=== PATIENT | female | born 1995 | race Caucasian/White ===

== ENCOUNTER 2018-08-04 12:22 | Emergency (ER) | payer BC, SELFPAY ==
[2018-08-04 12:21] VITALS: BP 108/63; PULSE 92; RESP 18; TEMP 37; O2SAT 98
--- NOTE | 2018-08-04 12:26 | W.ED.GENAD ---
Discharge Plan Disposition Patient Disposition: HOME Condition: Improving Discharge Details Chief Complaint: OD/Poison Clinical Impression: Opiate overdose Primary Care Provider: Sanam Zuniga ED Provider: Irving Chapa Home Meds and New Rx's Prescriptions: Continued fluoxetine 20 mg capsule 20 mg PO DAILY RF: 0 buprenorphine-naloxone [Suboxone] 12-3 mg film 1 film SL DAILY RF: 0 hydroxyzine pamoate 50 mg capsule 50 mg PO QHS PRNRF: 0 gabapentin 300 mg capsule 300 mg PO TID RF: 0 levonorgestrel-ethinyl estrad [Jolessa] 1 EACH tablets,dose pack,3 month 1 tab PO DAILY Qty: 1 RF: 4 Discharge Instructions Additional Instructions: Please continue your efforts to avoid illicit drug use. Return at any time for reevaluation. Should you have worsening headache, develop shortness of breath or cough return as we had discussed pursuing a CAT scan of your head and a chest x-ray which you declined. Continue your regular medications. Medical Decision Making 23-year-old female, with history of opiate use and abuse, currently taking Suboxone but used IV heroin this afternoon. She was standing and then fell down and believes she may have struck her head. EMS arrived, found her with sonorous respirations and an O2 sat in the 80s. She was given Narcan 2 mg x 2, had assisted [id number] for 4 breaths, then awoke to a normal sensorium. She arrives with unremarkable vital signs conversant, no acute distress. Differential diagnosis would include acute traumatic head injury in addition to opiate overdose. Patient had IV access established, referred for CT scan of the head and neck as well as chest Xray. The patient subsequently declined radiologic imaging. She was seen in the ED by addiction counselor. She requested discharge to home, was stable and improved, invited to return at any time. HPI General Mode of arrival: EMS. Date/Time Provider Initiated Documentation: 08/04/18 12:25. Limitations to Documentation: no limitations. Information obtained by: patient and EMS. History of Present Illness 23 year old F presents to the emergency department with the chief complaint of Overdose, given Narcan x2, improved. Now with headache, described as moderate, Quality is described as dull and constant, and is localized to the head. Patient reports no radiation. Patient started experiencing this minute(s) and it has been constant. No relieving factors improve symptom(s), No exacerbating factors reported . Patient notes no other symptoms.. Patient did receive the following treatments prior to arrival, other (Narcan 4 mg) Related Data Home Medications Medication Instructions Recorded Confirmed levonorgestrel-ethinyl estrad 1 tab PO DAILY #1 pack 08/11/17 [Jolessa] buprenorphine 12 mg-naloxone 3 mg 1 film SL DAILY 07/26/18 08/04/18 sublingual film fluoxetine 20 mg capsule 20 mg PO DAILY 07/26/18 08/04/18 gabapentin 300 mg capsule 300 mg PO TID 07/26/18 08/04/18 hydroxyzine pamoate 50 mg capsule 50 mg PO QHS PRN cap 07/26/18 07/26/18 Previous Rx's Medication Instructions Recorded levonorgestrel-ethinyl estrad 1 tab PO DAILY #1 pack 08/11/17 [Jolessa] Allergies Allergy/AdvReac Type Severity Reaction Status Date / Time No Known Allergies Allergy Unverified 08/04/18 12:26 General Stated Complaint: OD/Poison NICOLETTE: 2 Review of Systems Review of Systems No shortness of breath. Patient required [id number] orthotic assistant x4 breaths per EMS. Complains of headache. No numbness, tingling, weakness. She has otherwise been well. She does take Suboxone and has been using IV heroin. [facility] Surgical History parotid gland Family History Mother Anxiety and depression Brother Inattention Father Depression Grandfather Heart disease Grandfather No problems noted. Grandmother Personal history of malignant neoplasm Depression Grandmother Depression Family history (paternal) Depression Heart disease Family History (maternal) Diabetes Depression Heart disease Cancer Social History Smoking/Tobacco Use Status: Former Tobacco Use Alcohol Intake: former Drug use: Occasionally Substance use type: heroin Do you feel safe at home: Yes Do you feel safe in your relationship?: Yes Exam Narrative Exam Narrative: GEN: awake, alert, oriented 3. Pleasant, well groomed, interactive. HEAD: Normocephalic, atraumatic ENT: Mucous membranes moist, oropharynx unremarkable, External ear exam unremarkable EYES: PERRL, EOMI NECK: Full ROM, no BOBY, no menigismus CHEST/RESP: Nontender, clear to auscultation bilateral, no wheeze/rhonchi/rales CARDIOVASCULAR: RRR, no murmur, rub ara. 2+ Rad pulse bilateral ABDOMEN: Soft, nontender, no mass. +Bowel sounds EXT: Full ROM, no edema, no rash Neuro: Grossly normal neurologic exam, conversant, interactive. Psych: Speech fluent, thoughts congruent, affect normal Course Vital Signs Temperature 37.0 C 08/04/18 12:21 Pulse 92 H 08/04/18 12:21 Respiratory Rate 18 08/04/18 12:21 Blood Pressure 108/63 08/04/18 12:21 Pulse Oximetry 98 08/04/18 12:21 Temperature 37.0 C 08/04/18 12:21 Temperature Source Skin 08/04/18 12:21 Pulse 92 H 08/04/18 12:21 Respiratory Rate 18 08/04/18 12:21 Blood Pressure 108/63 08/04/18 12:21 Blood Pressure Position Supine 08/04/18 12:21 Pulse Oximetry 98 08/04/18 12:21 Oxygen Delivery Method Room Air 08/04/18 12:21 Oxygen Flow Rate 0 08/04/18 12:21
--- NOTE | 2018-08-04 12:30 | ED.GENADUL_ITS ---
Discharge Plan Disposition Patient Disposition: HOME Condition: Improving Discharge Details Chief Complaint: OD/Poison Clinical Impression: Opiate overdose Primary Care Provider: Sanam Zuniga ED Provider: Irving Chapa Home Meds and New Rx's Prescriptions: Continued fluoxetine 20 mg capsule 20 mg PO DAILY RF: 0 buprenorphine-naloxone [Suboxone] 12-3 mg film 1 film SL DAILY RF: 0 hydroxyzine pamoate 50 mg capsule 50 mg PO QHS PRNRF: 0 gabapentin 300 mg capsule 300 mg PO TID RF: 0 levonorgestrel-ethinyl estrad [Jolessa] 1 EACH tablets,dose pack,3 month 1 tab PO DAILY Qty: 1 RF: 4 Discharge Instructions Additional Instructions: Please continue your efforts to avoid illicit drug use. Return at any time for reevaluation. Should you have worsening headache, develop shortness of breath or cough return as we had discussed pursuing a CAT scan of your head and a chest x-ray which you declined. Continue your regular medications. Medical Decision Making 23-year-old female, with history of opiate use and abuse, currently taking Suboxone but used IV heroin this afternoon. She was standing and then fell down and believes she may have struck her head. EMS arrived, found her with sonorous respirations and an O2 sat in the 80s. She was given Narcan 2 mg x 2, had assisted [id number] for 4 breaths, then awoke to a normal sensorium. She arrives with unremarkable vital signs conversant, no acute distress. Differential diagnosis would include acute traumatic head injury in addition to opiate overdose. Patient had IV access established, referred for CT scan of the head and neck as well as chest Xray. The patient subsequently declined radiologic imaging. She was seen in the ED by addiction counselor. She requested discharge to home, was stable and improved, invited to return at any time. HPI General Mode of arrival: EMS . Date/Time Provider Initiated Documentation: 08/04/18 12:25 . Limitations to Documentation: no limitations . Information obtained by: patient and EMS . History of Present Illness 23 year old F presents to the emergency department with the chief complaint of Overdose, given Narcan x2, improved. Now with headache, described as moderate, Quality is described as dull and constant, and is localized to the head. Patient reports no radiation. Patient started experiencing this minute(s) and it has been constant. No relieving factors improve symptom(s), No exacerbating factors reported . Patient notes no other symptoms.. Patient did receive the following treatments prior to arrival, other (Narcan 4 mg) Related Data Home Medications Medication Instructions Recorded Confirmed levonorgestrel-ethinyl estrad 1 tab PO DAILY #1 pack 08/11/17 [Jolessa] buprenorphine 12 mg-naloxone 3 mg 1 film SL DAILY 07/26/18 08/04/18 sublingual film fluoxetine 20 mg capsule 20 mg PO DAILY 07/26/18 08/04/18 gabapentin 300 mg capsule 300 mg PO TID 07/26/18 08/04/18 hydroxyzine pamoate 50 mg capsule 50 mg PO QHS PRN cap 07/26/18 07/26/18 Previous Rx's Medication Instructions Recorded levonorgestrel-ethinyl estrad 1 tab PO DAILY #1 pack 08/11/17 [Jolessa] Allergies Allergy/AdvReac Type Severity Reaction Status Date / Time No Known Allergies Allergy Unverified 08/04/18 12:26 General Stated Complaint: OD/Poison NICOLETTE: 2 Review of Systems Review of Systems No shortness of breath. Patient required edo-[id number]-[id number] registered dental assistant rda x4 breaths per EMS. Complains of headache. No numbness, tingling, weakness. She has otherwise been well. She does take Suboxone and has been using IV heroin. [facility] Surgical History parotid gland Family History Mother Anxiety and depression Brother Inattention Father Depression Grandfather Heart disease Grandfather No problems noted. Grandmother Personal history of malignant neoplasm Depression Grandmother Depression Family history (paternal) Depression Heart disease Family History (maternal) Diabetes Depression Heart disease Cancer Social History Smoking/Tobacco Use Status: Former Tobacco Use Alcohol Intake: former Drug use: Occasionally Substance use type: heroin Do you feel safe at home: Yes Do you feel safe in your relationship?: Yes Exam Narrative Exam Narrative: GEN: awake, alert, oriented 3. Pleasant, well groomed, interactive. HEAD: Normocephalic, atraumatic ENT: Mucous membranes moist, oropharynx unremarkable, External ear exam unremarkable EYES: PERRL, EOMI NECK: Full ROM, no BOBY, no menigismus CHEST/RESP: Nontender, clear to auscultation bilateral, no wheeze/rhonchi/rales CARDIOVASCULAR: RRR, no murmur, rub ara. 2+ Rad pulse bilateral ABDOMEN: Soft, nontender, no mass. +Bowel sounds EXT: Full ROM, no edema, no rash Neuro: Grossly normal neurologic exam, conversant, interactive. Psych: Speech fluent, thoughts congruent, affect normal Course Vital Signs Temperature 37.0 C 08/04/18 12:21 Pulse 92 H 08/04/18 12:21 Respiratory Rate 18 08/04/18 12:21 Blood Pressure 108/63 08/04/18 12:21 Pulse Oximetry 98 08/04/18 12:21 Temperature 37.0 C 08/04/18 12:21 Temperature Source Skin 08/04/18 12:21 Pulse 92 H 08/04/18 12:21 Respiratory Rate 18 08/04/18 12:21 Blood Pressure 108/63 08/04/18 12:21 Blood Pressure Position Supine 08/04/18 12:21 Pulse Oximetry 98 08/04/18 12:21 Oxygen Delivery Method Room Air 08/04/18 12:21 Oxygen Flow Rate 0 08/04/18 12:21
[2018-08-04 12:44] VITALS: RESP 16
[2018-08-04 13:05] VITALS: BP 105/64; PULSE 86; RESP 16; TEMP 37.4; O2SAT 98
== END 2018-08-04 13:15 | disposition home or self-care (01) ==
LOC: ER 13:23
PROVIDERS: Emergency Provider Emergency Medicine
DX: T40.1X1A Poisoning by heroin, accidental (unintentional), initial encounter (principal); F11.10 Opioid abuse, uncomplicated; Z53.29 Procedure and treatment not carried out because of patient's decision for other reasons
CPT/HCPCS: 81025; 99284

== ENCOUNTER 2018-10-19 14:05 | Outpatient (CLI) | payer BC, SELFPAY ==
[2018-10-19 14:57] LABS: Absolute Basophil Count 0.01 k/cumm (0.0-0.2); Absolute Eosinophil Count 0.09 k/cumm (0.0-0.7); Absolute Lymphocyte Count 2.51 k/cumm (1.2-3.4); Absolute Monocyte Count 0.43 k/cumm (0.11-0.7); Absolute Neutrophil Count 2.84 k/cumm (1.2-6.7); Basophils % 0.2; Eosinophils % 1.5; HCT 38.2 % (36.0-46.0); HGB 12.7 g/dL (12.0-15.5); Lymphocytes % 42.7; Mean Corp. HGB Concentration 33.2 g/dL (32.0-36.0); Mean Corpuscular Hemoglobin 30.2 pg (27.0-33.0); Mean Platelet Volume 10.9 fL (8.0-11.0); Monocytes % 7.3; Neutrophils % 48.3; Platelet Count 209 x1000/uL (130-400); RBC Distribution Width 12.8 % (11.7-14.6); White Blood Cell Count 5.88 k/cumm (4.4-10.8)
[2018-10-19 16:00] LABS: ALT 85 U/L (12-78); AST 29 U/L (15-37); Albumin 2.8 g/dL (3.4-5.0); Alkaline Phosphatase 95 U/L (46-116); Anion Gap 8.1 mmol/L (3-11); BUN 16 mg/dL (7-18); Bilirubin, Total 0.4 mg/dL (0.2-1.0); CO2 25.9 mmol/L (21.0-32.0); CREATININE 0.67 mg/dL (0.55-1.02); Calcium 8.9 mg/dL (8.5-10.1); Chloride 105 mmol/L (98-107); Glucose 112 mg/dL (70-100); Sodium 139 mmol/L (136-145); Total Protein 6.7 g/dL (6.4-8.2)
[2018-10-20 09:18] LABS: Hepatitis B Surface Ag Negative (NEGAT)
[2018-10-20 09:45] LABS: HIV-1/2 Ag & Ab Screen Negative (NEGAT)
[2018-10-20 09:46] LABS: HBs Antibody, Quant <3.1 mIU/mL; Hep A Total Ab w Rflx IgM Positive (NEGAT); Hep B Core Antibody Negative (NEGAT); Hepatitis B Surface Ab Negative; Hepatitis C Ab w Rflx HCV PCR Negative (NEGAT)
[2018-10-20 10:56] LABS: Syphilis Serology (RPR) Negative (Negative)
[2018-10-25 09:29] LABS: Hep A Antibody IgM Negative (NEGAT)
== END 2018-10-19 14:25 ==
PROVIDERS: Visit Provider Nurse Practitioner Family
DX: F11.20 Opioid dependence, uncomplicated (principal); Z79.899 Other long term (current) drug therapy; Z11.3 Encounter for screening for infections with a predominantly sexual mode of transmission
CPT/HCPCS: 36415; 80053; 86704; 86706; 86709; 86803; 87340; 87389; 87491; 87591; 85025; 86592

== ENCOUNTER 2018-10-23 16:52 | Outpatient (CLI) | payer BC, SELFPAY ==
[2018-10-25 13:57] LABS: Chlamydia Result Negative; GC Result Negative; Specimen Description URINE
== END 2018-10-23 17:12 ==
PROVIDERS: Visit Provider Nurse Practitioner Family
DX: F11.20 Opioid dependence, uncomplicated (principal); Z11.3 Encounter for screening for infections with a predominantly sexual mode of transmission; Z79.899 Other long term (current) drug therapy
CPT/HCPCS: 87491; 87591

== ENCOUNTER 2018-10-23 16:57 | Emergency (ER) | payer BC, SELFPAY ==
[2018-10-23 17:06] VITALS: BP 114/72; PULSE 76; RESP 16; TEMP 36.3; O2SAT 96
--- NOTE | 2018-10-23 18:26 | DI.RAD_ITS ---
SYMPTOM/DIAGNOSIS: ? METALLIC FOREIGN BODY MID HUMERUS, SUPERFICIAL RIGHT HUMERUS: Two views. No acute fracture, dislocation, lytic or sclerotic lesion is seen. There is a 1.2 cm thin linear metallic foreign body in the soft tissues anterolateral to the mid shaft of the right humerus. No other foreign bodies are identified. IMPRESSION: 1.2 m metallic foreign body in the soft tissues anterolateral to the mid shaft of the right humerus
--- NOTE | 2018-10-23 18:26 | DI.RAD_ITS ---
SYMPTOM/DIAGNOSIS: ? METALLIC FOREIGN BODY MID FOREARM, SUPERFICIAL RIGHT FOREARM Two views. No acute fracture, dislocation or soft tissue injury is identified. No radiopaque foreign bodies are seen in the soft tissues. IMPRESSION: Negative examination.
--- NOTE | 2018-10-23 19:00 | NUR.NOTE ---
pt to xray Nursing Note:
--- NOTE | 2018-10-23 19:16 | DI.VRAD_ITS ---
EXAM: XR Right Humerus EXAM DATE/TIME: 10/23/2018 6:28 PM CLINICAL HISTORY: 23 years old, female; Injury or trauma; Injury history: Laceration; Initial encounter; Arm, upper; Right; Patient HX: Superficial; ; Additional info: ? Metallic foreign body mid humerus TECHNIQUE: Imaging protocol: XR Right humerus Views: 2 or more views. COMPARISON: CR XR forearm RT 10/23/2018 7:02 PM FINDINGS: Bones/joints: No fractures. No blastic or lytic lesions. Glenohumeral alignment and elbow alignment are normal. A.c. joint alignment is normal. Visualized ribs appear intact. Lungs: Visualized lung perkins are clear. Pleural space: No pneumothorax or gross pleural effusion. Soft tissues: There is a thin wire like metallic foreign body measuring 12 mm in length in the lateral to anterolateral soft tissues of the right upper arm just distal to the retirement point of the upper arm. No other foreign bodies are identified. Other findings: No periostitis or osteolysis. IMPRESSION: Thin 12 mm long metallic foreign body in the lateral to anterolateral soft tissues of the right upper arm as described. Dictated and Authenticated by: Anival Mendez MD. Ordering:YISSEL Anthony MD
--- NOTE | 2018-10-23 19:20 | DI.VRAD_ITS ---
EXAM: XR Right Forearm EXAM DATE/TIME: 10/23/2018 6:28 PM CLINICAL HISTORY: 23 years old, female; Injury or trauma; Injury history: Laceration; Initial encounter; Arm, lower; Right; Patient HX: Superficial; ; Additional info: ? Metallic foreign body mid forearm TECHNIQUE: Imaging protocol: XR Right forearm. Views: 2 views. COMPARISON: No relevant prior studies available. FINDINGS: Bones/joints: Proximal and distal radial ulnar alignment is normal. Elbow joint alignment is normal. No fractures. No blastic or lytic lesions. No elbow joint effusion. No gross wrist joint effusion. No periostitis or osteolysis. Soft tissues: No gross soft tissue abnormalities. No radiopaque foreign bodies are identified. Other findings: Normal mineralization. Carpal relationships are normal. No articular erosions. IMPRESSION: The right forearm is radiographically normal. No radiopaque foreign bodies in the forearm. Dictated and Authenticated by: Anival Mendez MD. Ordering:YISSEL Anthony MD
--- NOTE | 2018-10-23 19:33 | W.ED.GENAD ---
Discharge Plan Disposition Patient Disposition: HOME Condition: Good Discharge Details Chief Complaint: Laceration Clinical Impression: Foreign body in right upper extremity Primary Care Provider: Sanam Zuniga ED Provider: Raj Oliva Home Meds and New Rx's Prescriptions: Continued fluoxetine 20 mg capsule 20 mg PO DAILY RF: 0 buprenorphine-naloxone [Suboxone] 12-3 mg film 1 film SL DAILY RF: 0 hydroxyzine pamoate 50 mg capsule 50 mg PO QHS PRNRF: 0 gabapentin 300 mg capsule 300 mg PO TID RF: 0 levonorgestrel-ethinyl estrad [Jolessa] 1 EACH tablets,dose pack,3 month 1 tab PO DAILY Qty: 1 RF: 4 Discharge Instructions Instructions: Soft Tissue Foreign Body (ED) Additional Instructions: Watch for any signs of infection and return immediately if these occur otherwise follow-up with general surgery as needed for reassessment or removal of foreign body if you choose to have this removed. If you have any other worrisome signs or symptoms feel free to return to emergency department again for reevaluation. Referrals: [facility] [Provider Group] Discharge Data Discharge Date/Time-TO BE ENTERED AT DEPARTURE: 10/23/18 19:44 Medical Decision Making Patient reports couple months ago she injected heroin into her right upper arm and the needle broke. She states that this was irritating the first couple weeks and then seemed to resolve but now she is having lower forearm pain. She is concerned about needle movement or secondary needle that may be in the lower forearm. Physical exam shows track kruger and some scar tissue around the superficial veins of the right upper extremity both in the mid upper arm and lower forearm. No erythema, patient has no fever no chills, patient is nontoxic in appearance, no other symptoms. Doubt thrombus at this point given no erythema no significant amount of discomfort with palpation. Plan to evaluate for metallic foreign body with radiological imaging. Patient states that she last injected over 3 weeks ago and has been clean since. Radiological imaging shows a radiopaque foreign body approximately 12 mm long in the right upper arm that appears in the soft tissue. Bedside ultrasound was utilized and venous structures in this area were visualized and it was difficult to find the metallic foreign body but it did not appear in the corresponding vein where patient stated she injected. Either way this is been greater than 2 months I do not feel that this is a medical emergency. Patient was recommended if she wanted this removed or consideration of that that she should follow-up with general surgery for possible cutdown and removal of foreign body. Return precautions were discussed and patient to monitor for signs of infection but I feel this is doubtful given duration of symptoms. After discussion of diagnosis and plan of care patient has no further needs, questions, or concerns and states clear understanding to return to the emergency department for any worsening symptoms. HPI General Mode of arrival: ambulatory. Date/Time Provider Initiated Documentation: 10/23/18 17:32. Limitations to Documentation: no limitations. Information obtained by: patient. History of Present Illness 23 year old F presents to the emergency department with the chief complaint of Retained needle in right upper arm, Quality is described as other (Denies pain), and is localized to the right and upper extremity. Patient started experiencing this month(s) (1) and it has been constant. Patient notes no other symptoms.. Patient did receive the following treatments prior to arrival, none Related Data Home Medications Medication Instructions Recorded Confirmed levonorgestrel-ethinyl estrad 1 tab PO DAILY #1 pack 08/11/17 [Jolessa] buprenorphine 12 mg-naloxone 3 mg 1 film SL DAILY 07/26/18 08/04/18 sublingual film fluoxetine 20 mg capsule 20 mg PO DAILY 07/26/18 08/04/18 gabapentin 300 mg capsule 300 mg PO TID 07/26/18 08/04/18 hydroxyzine pamoate 50 mg capsule 50 mg PO QHS PRN cap 07/26/18 07/26/18 Previous Rx's Medication Instructions Recorded levonorgestrel-ethinyl estrad 1 tab PO DAILY #1 pack 08/11/17 [Jolessa] Allergies Allergy/AdvReac Type Severity Reaction Status Date / Time No Known Allergies Allergy Unverified 10/23/18 17:10 General Stated Complaint: Laceration NICOLETTE: 4 Review of Systems Cardiovascular Denies chest pain and Denies dyspnea Respiratory Denies dyspnea Musculoskeletal Denies deformity, Denies limited range of motion and Denies numbness Integumentary/Breasts Reports as per HPI Neurologic Denies numbness and Denies paresthesias [facility] Surgical History parotid gland Family History Mother Anxiety and depression Brother Inattention Father Depression Grandfather Heart disease Grandfather No problems noted. Grandmother Personal history of malignant neoplasm Depression Grandmother Depression Family history (paternal) Depression Heart disease Family History (maternal) Diabetes Depression Heart disease Cancer Social History Smoking/Tobacco Use Status: Former Tobacco Use Alcohol Intake: former Drug use: Occasionally Substance use type: heroin Do you feel safe at home: Yes Do you feel safe in your relationship?: Yes Exam Const General: cooperative, no acute distress and not ill appearing Orientation: alert, awake and oriented x3 HENMT Mouth: moist mucous membranes Resp Effort & Inspection: normal respiratory effort, able to speak in complete sentences and no respiratory distress Cardio Rate: regular rate Rhythm: regular rhythm Heart Sounds: S1 normal and S2 normal Skin General skin exam: scars right anterior upper arm well-healed, right anterior forearm well-healed Neuro General: alert, awake, oriented x3, moves all extremities and no focal motor deficits Sensory Exam: no sensory deficits noted Course Vital Signs Temperature 36.3 C L 10/23/18 17:06 Pulse 76 10/23/18 17:06 Respiratory Rate 16 10/23/18 17:06 Blood Pressure 114/72 10/23/18 17:06 Pulse Oximetry 96 10/23/18 17:06 Temperature 36.3 C L 10/23/18 17:06 Temperature Source Skin 10/23/18 17:06 Pulse 76 10/23/18 17:06 Respiratory Rate 16 10/23/18 17:06 Respiratory Effort Non-Labored 10/23/18 18:23 Blood Pressure 114/72 10/23/18 17:06 Blood Pressure Position Sitting 10/23/18 17:06 Pulse Oximetry 96 10/23/18 17:06 Oxygen Delivery Method Room Air 10/23/18 17:06 Oxygen Flow Rate 0 10/23/18 17:06 Lab/Test Results Lab/Test Results: POC- Test(urine) Negative
== END 2018-10-23 19:44 | disposition home or self-care (01) ==
PROVIDERS: Emergency Provider Nurse Practitioner Family
DX: M79.5 Residual foreign body in soft tissue (principal); W46.0XXA Contact with hypodermic needle, initial encounter; F11.10 Opioid abuse, uncomplicated
CPT/HCPCS: 81025; 99284; 73060; 73090

== ENCOUNTER 2018-12-05 20:20 | Emergency (ER) | payer BC, SELFPAY ==
[2018-12-05 20:32] VITALS: BP 124/85; PULSE 127; RESP 16; TEMP 36.9; O2SAT 97
--- NOTE | 2018-12-05 20:57 | W.ED.GENAD ---
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 The obstetrics and gynecology office will call you to make a follow-up appointment. Please see them in clinic for recheck. Your gonorrhea and Chlamydia tests are pending. Please take the prescribed Flagyl twice daily until finished. Avoid alcohol while taking this medication. It is to treat a vaginitis caused by Gardnerella. Return if you develop a fever, worsening vaginal bleeding greater than 2 pads per hour, or any other acute concerns. Medical Decision Making 23-year-old female presents from home complaining of 2 primary issues: First, she is in partial substance abuse recovery, having quit opiates but continued to use illicit Xanax up to 4 mg/day. She also recently did smoke some crack cocaine. Taking buprenorphine and mood stabilizer. States to me she feels safe, has no thoughts of harming herself or others. Second, she states while using heroin recently she did not have her menses for 6 to 7 months (stopped using oral contraceptive), menses recurred for 4 days in September, she had a month of no bleeding, now with 6 to 7 days of mild lower abdominal cramping with up to 1 tampon per hour vaginal bleeding without clots or tissue. She also describes some foul-smelling yellow discharge. She is slightly tachycardic at rest, stable vital signs, vaginal exam reveals that the office is fingertip with some blood in the posterior vaginal vault. No tenderness or masses. Given 1 L fluid. Laboratories with normal hematocrit of 41. Chemistries unremarkable. Beta hCG negative. Gardnerella positive, will treat with Flagyl, patient understands to avoid alcohol. Following fluids, pulse improved. Pt improving. Case discussed with Dr Keenan and patient to be set up for outpatient recheck this week. She may benefit from keno terminal operator control. Lab Data Lab results reviewed: Yes I reviewed the patient's lab results. Laboratory Results - last 24 hr 12/05/18 12/05/18 12/05/18 20:46 21:05 21:05 WBC 7.05 RBC 4.88 Hgb 14.7 Hct 41.7 MCV 85.5 MCH 30.1 MCHC 35.3 RDW 12.6 Plt Count 266 MPV 10.4 Immature Gran % 0.1 Neutrophils % 59.3 Lymphocytes % 32.6 Monocytes % 7.4 Eosinophils % 0.3 Basophils % 0.3 Absolute Neutrophils 4.18 Absolute Lymphocytes 2.30 Absolute Monocytes 0.52 Absolute Eosinophils 0.02 Absolute Basophils 0.02 Sodium 135 L Potassium 3.6 Chloride 100 Carbon Dioxide 24.9 Anion Gap 10.1 BUN 14 Creatinine 0.86 Estimated GFR/1.73 m2 >= 60.00 Glucose 99 Calcium 9.0 Total Bilirubin 0.5 AST 20 ALT 27 Alkaline Phosphatase 116 Total Protein 8.2 Albumin 3.5 Beta HCG, Quant < 1 L Patient ABO/Rh Cancelled HPI General Mode of arrival: ambulatory. Date/Time Provider Initiated Documentation: 12/05/18 20:27. Limitations to Documentation: no limitations. Information obtained by: patient. History of Present Illness 23 year old F presents to the emergency department with the chief complaint of Vaginal bleeding, described as moderate, and is localized to the pelvis. Patient reports no radiation. Patient started experiencing this day(s) and it has been intermittent. No relieving factors improve symptom(s), No exacerbating factors reported . Patient notes other (Denies withdrawal. States she is been using illicit benzodiazepines, continues to take medications. Seeking readmission to [facility] or [facility] for substance abuse.). 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 States no new mood changes. No fever. Positive foul-smelling vaginal discharge. Some dyspareunia. 8 systems reviewed and otherwise negative [facility] History parotid gland benign cyst removed at age 4 Social History Smoking/Tobacco Use Status: Former Tobacco Use Alcohol Intake: former Drug use: Occasionally Substance use type: crack/cocaine and prescription drug Do you feel safe at home: Yes Do you feel safe in your relationship?: Yes Exam Narrative Exam Narrative: GEN: awake, alert, oriented 3. Pleasant, well groomed, interactive. HEAD: Normocephalic, atraumatic ENT: Mucous membranes moist, oropharynx unremarkable, External ear exam unremarkable EYES: PERRL, EOMI NECK: Full ROM, no BOBY, no menigismus CHEST/RESP: Nontender, clear to auscultation bilateral, no wheeze/rhonchi/rales CARDIOVASCULAR:regular, tachycardic, no murmur, rub ara. 2+ Rad pulse bilateral ABDOMEN: Soft, nontender, no mass. +Bowel sounds TABLE COVER FOLDER: The cervical os is fingertip, there is dark blood in the posterior vaginal vault. There is no adnexal tenderness or mass. EXT: Full ROM, no edema, no rash. Track kruger bilateral upper extremity Neuro: Grossly normal neurologic exam, conversant, interactive. Psych: Speech fluent, thoughts congruent, affect normal Course Vital Signs Temperature 36.9 C 12/05/18 20:32 Pulse 127 H 12/05/18 20:32 Respiratory Rate 16 12/05/18 20:32 Blood Pressure 124/85 12/05/18 20:32 Pulse Oximetry 97 12/05/18 20:32 Temperature 36.9 C 12/05/18 20:32 Temperature Source Skin 12/05/18 20:32 Pulse 127 H 12/05/18 20:32 Respiratory Rate 16 12/05/18 20:32 Blood Pressure 124/85 12/05/18 20:32 Blood Pressure Position Sitting 12/05/18 20:32 Pulse Oximetry 97 12/05/18 20:32 Oxygen Delivery Method Room Air 12/05/18 20:32 Oxygen Flow Rate 0 12/05/18 20:32 Pain Level 0 12/05/18 20:32
[2018-12-05 21:16] LABS: Abs Immature Grans 0.01 k/cumm (0.0-0.09); Absolute Basophil Count 0.02 k/cumm (0.0-0.2); Absolute Eosinophil Count 0.02 k/cumm (0.0-0.7); Absolute Monocyte Count 0.52 k/cumm (0.11-0.7); Absolute Neutrophil Count 4.18 k/cumm (1.2-6.7); Basophils % 0.3; Eosinophils % 0.3; HCT 41.7 % (36.0-46.0); HGB 14.7 g/dL (12.0-15.5); Immature Grans % 0.1; Lymphocytes % 32.6; Mean Corp. HGB Concentration 35.3 g/dL (32.0-36.0); Mean Corpuscular Hemoglobin 30.1 pg (27.0-33.0); Mean Corpuscular Volume 85.5 fL (80-95); Mean Platelet Volume 10.4 fL (8.0-11.0); Monocytes % 7.4; Neutrophils % 59.3; Platelet Count 266 x1000/uL (130-400); RBC 4.88 m/cumm (4.00-5.20); RBC Distribution Width 12.6 % (11.7-14.6); White Blood Cell Count 7.05 k/cumm (4.4-10.8)
[2018-12-05 21:47] LABS: ALT 27 U/L (14-59); AST 20 U/L (15-37); Albumin 3.5 g/dL (3.4-5.0); Alkaline Phosphatase 116 U/L (46-116); Anion Gap 10.1 mmol/L (3-11); BUN 14 mg/dL (7-18); Bilirubin, Total 0.5 mg/dL (0.2-1.0); CO2 24.9 mmol/L (21.0-32.0); CREATININE 0.86 mg/dL (0.55-1.02); Chloride 100 mmol/L (98-107); Glucose 99 mg/dL (70-100); Potassium 3.6 mmol/L (3.5-5.1); Sodium 135 mmol/L (136-145); Total Protein 8.2 g/dL (6.4-8.2)
[2018-12-05 21:49] LABS: HCG Quant, Pregnancy < 1 mIU/mL (1-3)
[2018-12-05 22:09] VITALS: BP 135/88; PULSE 101; RESP 16; TEMP 36.6; O2SAT 96
[2018-12-07 13:21] LABS: Chlamydia Result Negative; GC Result Negative; Specimen Description CERVIX
== END 2018-12-05 22:40 | disposition home or self-care (01) ==
PROVIDERS: Emergency Provider Emergency Medicine
DX: N76.0 Acute vaginitis (principal); B96.89 Other specified bacterial agents as the cause of diseases classified elsewhere; F14.10 Cocaine abuse, uncomplicated; F13.10 Sedative, hypnotic or anxiolytic abuse, uncomplicated
CPT/HCPCS: 36415; 80053; 86900; 86901; 87491; 87591; 99284; 84702; 85025; 87480; 87510; 87660; 99283

== ENCOUNTER 2018-12-07 12:05 | Observation (INO) | payer BC, SELFPAY ==
[2018-12-07] VITALS (8 sets, daily range): BP systolic 91–95; BP diastolic 52–63; PULSE 64–74; RESP 14–20; TEMP 36.8–36.9; O2SAT 93–99
--- NOTE | 2018-12-07 12:24 | W.ED.GENAD ---
Discharge Plan Disposition Patient Disposition: [facility] INPATIENT Condition: Stable Discharge Details Chief Complaint: PsychEval Clinical Impression: Depression Primary Care Provider: Sanam Zuniga ED Provider: Hitesh Hawkins Home Meds and New Rx's Prescriptions: No Action buprenorphine-naloxone [Suboxone] 12-3 mg film 1 film SL DAILY RF: 0 Medical Decision Making 23 yo female with hx of substance abuse, who comes in with thoughts of wanting to harm herself and wants to go to [place]. She denies trying to harm herself other than using illicit drugs including cocaine. She has no fevers or other symptoms to suggest underlying medical process such as endocrine or infectious etiology. Will have mental health evaluate pt remains stable without deficits on exam. no psychiatric beds avaiable, is voluntary at this time. Spoke with Dr. Sanders who accepts for admission pending psych bed availability Differential Diagnosis Differential Diagnosis: si, drug abuse Lab Data Lab results reviewed: Yes I reviewed the patient's lab results. HPI General Mode of arrival: ambulatory. Date/Time Provider Initiated Documentation: 12/07/18 12:23. Limitations to Documentation: no limitations. Information obtained by: patient. History of Present Illness 23 year old F presents to the emergency department with the chief complaint of suicidal ideation, described as moderate, and it has been constant. No relieving factors improve symptom(s), No exacerbating factors reported . Related Data Home Medications Medication Instructions Recorded Confirmed buprenorphine 12 mg-naloxone 3 mg 1 film SL DAILY 07/26/18 12/07/18 sublingual film Allergies Allergy/AdvReac Type Severity Reaction Status Date / Time No Known Allergies Allergy Unverified 12/07/18 12:22 General Stated Complaint: PsychEval NICOLETTE: 2 Review of Systems Review of Systems ROS Unobtainable: All systems reviewed & are unremarkable except as noted in HPI and below Constitutional Constitutional: Denies chills, Denies fever(s) and Denies weakness Cardiovascular Cardiovascular: Denies dyspnea Respiratory Respiratory: Denies cough and Denies dyspnea Gastrointestinal Gastrointestinal: Denies abdominal pain, Denies nausea and Denies vomiting Musculoskeletal Musculoskeletal: Denies joint swelling Neurologic Neurologic: Denies weakness [facility] Social History Smoking/Tobacco Use Status: Current every day Alcohol Intake: current Alcohol Intake frequency: a few times a week Drug use: Daily Substance use type: crack/cocaine, heroin, sedatives, IV drugs and prescription drug Do you feel safe at home: Yes Do you feel safe in your relationship?: Yes Exam Const General: no acute distress Orientation: alert HENMT Head: normal to inspection Ears: external ears normal General nose exam: external nose normal Mouth: moist mucous membranes Eyes General: appearance normal, both eyes and all related structures Neck Neck: normal visual inspection Resp Effort & Inspection: normal respiratory effort and able to speak in complete sentences Cardio Rate: regular rate Skin General skin exam: no rashes or lesions noted Neuro General: alert and oriented x3 Extrem General: normal to inspection Psych Speech and Movement: not agitated Course Vital Signs Vital signs: Vital Signs Temperature 36.9 C 12/07/18 12:13 Pulse 69 12/07/18 12:13 Respiratory Rate 12/07/18 12:13 Blood Pressure 95/61 L 12/07/18 12:13 Pulse Oximetry 95 12/07/18 12:13 Temperature 36.9 C 12/07/18 12:13 Temperature Source Temporal Artery Scan 12/07/18 12:13 Pulse 69 12/07/18 12:13 Respiratory Rate 12/07/18 12:13 Blood Pressure 95/61 L 12/07/18 12:13 Pulse Oximetry 95 12/07/18 12:13 Oxygen Delivery Method Room Air 12/07/18 12:13 Oxygen Flow Rate 0 12/07/18 12:13 Pain Level 0 12/07/18 12:13
--- NOTE | 2018-12-07 12:43 | NUR.NOTE ---
Nursing Note: Patient is on oxygen monitoring due to impairment.
[2018-12-07 13:20] LABS: Abs Immature Grans 0.01 k/cumm (0.0-0.09); Absolute Basophil Count 0.01 k/cumm (0.0-0.2); Absolute Eosinophil Count 0.03 k/cumm (0.0-0.7); Absolute Lymphocyte Count 1.84 k/cumm (1.2-3.4); Absolute Monocyte Count 0.68 k/cumm (0.11-0.7); Absolute Neutrophil Count 4.95 k/cumm (1.2-6.7); Basophils % 0.1; Eosinophils % 0.4; HCT 36.6 % (36.0-46.0); HGB 12.8 g/dL (12.0-15.5); Immature Grans % 0.1; Lymphocytes % 24.5; Mean Corpuscular Hemoglobin 30.4 pg (27.0-33.0); Mean Corpuscular Volume 86.9 fL (80-95); Mean Platelet Volume 10.5 fL (8.0-11.0); Neutrophils % 65.9; Platelet Count 238 x1000/uL (130-400); RBC 4.21 m/cumm (4.00-5.20); RBC Distribution Width 12.6 % (11.7-14.6); White Blood Cell Count 7.52 k/cumm (4.4-10.8)
[2018-12-07 13:41] LABS: ALT 20 U/L (14-59); AST 17 U/L (15-37); Albumin 2.9 g/dL (3.4-5.0); Alkaline Phosphatase 101 U/L (46-116); BUN 8 mg/dL (7-18); Bilirubin, Total 0.5 mg/dL (0.2-1.0); CREATININE 0.73 mg/dL (0.55-1.02); Calcium 8.1 mg/dL (8.5-10.1); Chloride 103 mmol/L (98-107); Glucose 119 mg/dL (70-100); Potassium 3.9 mmol/L (3.5-5.1); Sodium 138 mmol/L (136-145); TSH (W/Ref FT4) 0.39 uIU/mL (0.36-3.74); Total Protein 6.9 g/dL (6.4-8.2)
[2018-12-07 13:57] LABS: ETHANOL BLOOD < 3.0 mg/dL (<3)
[2018-12-07 14:03] LABS: Salicylate < 2.8 mg/dL (2.8-20.0)
[2018-12-07 14:07] LABS: Acetaminophen < 2 ug/mL (10-30)
[2018-12-07 14:28] LABS: Bilirubin Negative (Negative); Blood Trace-intact (Negative); Clarity Sl Cloudy (Clear); Glucose Negative (Negative); Ketones Negative (Negative); Leukocyte Esterase Negative (Negative); Nitrite Negative (Negative); Urobilinogen 0.2 EU/dL (Up TO 0.2)
[2018-12-07 14:48] LABS: Epithelial Cells Many HPF (Negative); RBC 0-2 (0-2); WBC 0-2 HPF (0-5)
[2018-12-07 14:49] LABS: Bacteria Few HPF (Negative); C & S Indicated? No/Sq. Contamination; Crystals Negative HPF (Negative); Mucus Trace (Negative)
[2018-12-07 14:56] LABS: *AMPHETAMINES SCREEN URINE Negative (Negative); *BARBITURATES SCREEN URINE Negative (Negative); *BENZODIAZEPINES SCREEN URINE POSITIVE (Negative); Cannabinoids THC Negative (Negative); Cocaine Screen,Urine POSITIVE (Negative); METHADONE URINE SCREEN Negative (Negative); OPIATES URINE SCREEN Negative (Negative)
[2018-12-07 15:01] LABS: Tricyclic Antidepressants Negative (Negative)
--- NOTE | 2018-12-07 15:43 | PDOC.MHCN_ITS ---
Date of service: 12/07/18 Time of Service: 15:43 Mental Health Crisis Note Presenting Issue How did you arrive at the ED and why did you come: Patient's boyfriend brings her to the ED for suicidal ideation with plan to overdose on cocaine. Precipitating Factors Patient denies current suicidal ideation because she feels safe in the hospital but reports that she has been having suicidal thoughts off and on for an extended period of time. She shares that a few days ago she placed her father's unloaded shotgun into her mouth to see how easy it would be to kill herself. Disposition BEHAVIOR: Cooperative. EYE CONTACT: Poor but patient is extremely drowsy at the time of the assessment. MOOD: Depressed. AFFECT: Flat. APPETITE: Unknown. SLEEP(trouble falling/staying asleep: Unknown. Plan Plan is to seek a voluntary hospitalization. [facility] accepts a referral for review. Signature Clinician's Name/Title: Ella Casas BA [facility] Induction Coordination Power Engineer
--- NOTE | 2018-12-07 16:11 | CMSP_ITS ---
- If Service Date Differs Date of service: 12/07/18 Time of Service: 16:12 Care Management Safety Plan César is VOLUNTARY FOR INPATIENT PSYCHIATRIC STABILIZATION. Patient is not able to stay awake long enough during encounter to engaged with CM. CM did review the plan during moments of alertness. Safety plan has been established with patient, and care team, to adhere to patient goals, identify restrictions based on behavioral status, address nutrition, and determine allowed personal belongings, tools for hygiene and personal care. Determine level of activity including ambulation, level of supervision, visitors, and determine privileges based on behaviors and level of engagement by pt. Huddle: RN Production Statistical Clerk Johana, Primary RN Ella Quintana, [facility] and [facility] Crisis. was able to offer concerns prior to the huddle and advise on sa fety plan. SAFETY PLAN: 1. Will remain on suicide precautions. In Paper Clothes 2. Will remain in room under direct supervision of one-on-one staff at all times provided by [employer]; LUIZA, WHEEL BLOCKER weight training instructor. 3. May have paper cups, plates, cardboard spoon, and finger foods. 4. Follow [facility] Management of the Admitted Behavioral Health Patient policy. 5. Comfort bath system only. 6. Personal belongings- cell phone only 7. Visitors-No visitors at this time 8. Activities: cell phone, coloring, music with wireless headphones, books and crayons or soft tip markers. Patient may have TV and remote if she is admitted to the medical surgical unit. 9. Bathroom privileges 10. Phone: May have own cell phone in the room. 11. Due to VOLUNTARY status, if patient wishes to leave [facility], the [facility] novelty worker must be contacted to re-evaluate patient prior to patient exiting the building. P: Patient is currently voluntarily at [facility] and seeking inpatient admission when a bed becomes available. [facility] has made contact with [facility] currently reviewing referral. [facility] Frontline Video Photographer will continue seeking placement. Please contact the Oil Spraying Machine Operator Manager Of Production ([phone]) and [facility] Video Photographer ([phone]) for any needed changes in the Safety Plan. Safety plan has been provided to interdepartmental care team.
[2018-12-07] MEDS: Enoxaparin 40 MG/0.4 ML SYR SC (19:12)
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
[2018-12-08 05:23] VITALS: BP 96/58; PULSE 74; RESP 16; TEMP 36.7; O2SAT 97
[2018-12-08 05:37] VITALS: BP 99/59; PULSE 76; RESP 20; TEMP 36.2; O2SAT 97
[2018-12-08 07:30] VITALS: BP 103/55; PULSE 70; RESP 16; TEMP 36.8; O2SAT 97
[2018-12-08] MEDS: Buprenorphine/Naloxone 8 mg/2 mg FILM 1 EACH SL (10:40)
--- NOTE | 2018-12-08 10:58 | PHARADMIT ---
Admission Pharmacy Clinical Review SUICIDAL IDEATION, DEPRESSION Code Status Full Code Current Weight Wgt-52 kg Renally Cleared and Narrow Therapeutic Index Meds CrCl~ 91. mL/min Meds-OK QTc Value / Action Taken none BP Control, Fever BP-103/55 Tmax- 36.8C Electrolytes reviewed Na-138 K+3.9 DVT Prophylaxis Lovenox 40mg Opiate Usage / Scheduled Bowel Regimen Ordered Yes Yes Plt/SCr for Heparin / Enoxaparin Plts- 238 SCr-0.73 INR for Warfarin na H/H stable, WBC/Bands H&H- 12.8/36.6 WBC-7.52 Antibiotic appropriateness none Cultures and Sensitivities na Surgical ABX d/c within 24 hr na DM control / Insulin Dosing BG-119 Heart Failure (Check EF%) (MARTIN's, B-Block, Diuretics) NONE IV to PO Switch No Home Meds Reviewed Yes Home Meds Not Ordered BC-Pills, Atarax, Gabapentin Comments
--- NOTE | 2018-12-08 11:35 | W.PM.PROGNOT ---
Date of Service Date of service: 12/08/18 Time of Service: 11:35 Assessment and Plan Assessment and plan (1) Suicidal ideation: Start date: 12/08/18 Start time: 11:43 Status: Acute Assessment and plan: Not having any thoughts of SI or HI at this moment, however given history over last week, consider SI to be a possibility in setting of recent events. (2) Opioid abuse: Start date: 12/08/18 Start time: 11:57 Status: Chronic Assessment and plan: Continue suboxone 10/27, (3) Depression: Start date: 12/08/18 Start time: 12:01 Status: Chronic Assessment and plan: Patient long standing depression, will leave for outpatient to manage depression as she has been on multiple depression medications. Qualifiers: Depression Type: major depressive disorder Major depression recurrence: recurrent Active/Remission status: currently active Major depression episode severity: severe Psychotic features: without psychotic features Qualified Code(s): F33.2 - Major depressive disorder, recurrent severe without psychotic features (4) DVT prophylaxis: Start date: 12/08/18 Start time: 12:02 Status: Acute Assessment and plan: Enoxaparin on a 23 y.o with current IVDU (5) Discharge planning issues: Start date: 12/08/18 Start time: 12:02 Status: Acute Assessment and plan: [place] when bed available. Voluntary Case has been discussed with Dr. Vega, who is in agreement to above plan. Subjective Subjective Patient reports: no new complaints Interval history since last seen: Sleeping but awakes easily. Not having any thoughts of SI or HI today. Did restart suboxone. At this time she is not craving alcohol or drugs. She denies N/V/D, CP, SOB. Exam Const General: cooperative and comfortable Eyes Pupils: PERRL Neck Lymphatic: no lymphadenopathy noted Chest Chest: normal inspection of the chest Resp Effort & Inspection: normal respiratory effort Auscultation: clear to auscultation bilaterally Cardio Jugular venous pressure: no JVD Rate: regular rate Rhythm: regular rhythm Heart Sounds: S1 normal and S2 normal GI Inspection: normal to inspection Palpation: soft and no hepatosplenomegaly Auscultation: normal bowel sounds Neuro General: alert, awake and oriented x3 Extrem General: other (kruger from cutting on left wrist and tract lines to right forearm.) Psych Affect: normal affect Attitude: cooperative Thought Content: normal Insight: poor Judgment: poor Objective Objective Clinical Data: Abnormal lab results 12/07/18 12/07/18 12/07/18 Range/Units 13:05 13:05 14:21 Glucose 119 H (70-100) mg/dL Calcium 8.1 L (8.5-10.1) mg/dL Albumin 2.9 L (3.4-5.0) g/dL Urine Blood Trace-intact H (Negative) Salicylates < 2.8 L (2.8-20.0) mg/dL Acetaminophen < 2 L (10-30) ug/mL Vital Signs Temperature 36.8 C 12/08/18 07:30 Temperature Source Tympanic 12/08/18 07:30 Pulse 70 12/08/18 07:30 Pulse Rhythm Regular 12/08/18 07:34 Respiratory Rate 16 12/08/18 07:30 Respiratory Effort Non-Labored 12/07/18 23:30 Respiratory Depth Normal 12/08/18 07:34 Respiratory Pattern Normal 12/08/18 07:34 Blood Pressure 103/55 L 12/08/18 07:30 Pulse Oximetry 97 12/08/18 07:30 Oxygen Delivery Method Room Air 12/08/18 07:30 Oxygen Flow Rate 0 12/08/18 07:30 Pain Level 0 12/08/18 07:30 Comment 12/08/18 05:37 Intake & Output 12/07/18 12/07/18 12/08/18 11:59 23:59 11:59 Intake Total 300 / 300 600 / 600 Balance 300 / 300 600 / 600 Weight 52.163 kg 52 kg Intake: Oral 300 / 300 600 / 600 Other: Urine Appearance Clear Laboratory Results WBC 7.52 k/cumm (4.4-10.8) 12/07/18 13:05 RBC 4.21 m/cumm (4.00-5.20) 12/07/18 13:05 Hgb 12.8 g/dL (12.0-15.5) 12/07/18 13:05 Hct 36.6 % (36.0-46.0) 12/07/18 13:05 MCV 86.9 fL (80-95) 12/07/18 13:05 MCH 30.4 pg (27.0-33.0) 12/07/18 13:05 MCHC 35.0 g/dL (32.0-36.0) 12/07/18 13:05 RDW 12.6 % (11.7-14.6) 12/07/18 13:05 Plt Count 238 x1000/uL (130-400) 12/07/18 13:05 MPV 10.5 fL (8.0-11.0) 12/07/18 13:05 Immature Gran % 0.1 12/07/18 13:05 Neutrophils % 65.9 12/07/18 13:05 Lymphocytes % 24.5 12/07/18 13:05 Monocytes % 9.0 12/07/18 13:05 Eosinophils % 0.4 12/07/18 13:05 Basophils % 0.1 12/07/18 13:05 Absolute Neutrophils 4.95 k/cumm (1.2-6.7) 12/07/18 13:05 Absolute Lymphocytes 1.84 k/cumm (1.2-3.4) 12/07/18 13:05 Absolute Monocytes 0.68 k/cumm (0.11-0.7) 12/07/18 13:05 Absolute Eosinophils 0.03 k/cumm (0.0-0.7) 12/07/18 13:05 Absolute Basophils 0.01 k/cumm (0.0-0.2) 12/07/18 13:05 Sodium 138 mmol/L (136-145) 12/07/18 13:05 Potassium 3.9 mmol/L (3.5-5.1) 12/07/18 13:05 Chloride 103 mmol/L (98-107) 12/07/18 13:05 Carbon Dioxide 27.0 mmol/L (21.0-32.0) 12/07/18 13:05 Anion Gap 8.0 mmol/L (3-11) 12/07/18 13:05 BUN 8 mg/dL (7-18) D 12/07/18 13:05 Creatinine 0.73 mg/dL (0.55-1.02) 12/07/18 13:05 Estimated GFR/1.73 m2 >= 60.00 (mL/min/1.73m2) 12/07/18 13:05 Glucose 119 mg/dL (70-100) H 12/07/18 13:05 Calcium 8.1 mg/dL (8.5-10.1) L 12/07/18 13:05 Total Bilirubin 0.5 mg/dL (0.2-1.0) 12/07/18 13:05 AST 17 U/L (15-37) 12/07/18 13:05 ALT 20 U/L (14-59) 12/07/18 13:05 Alkaline Phosphatase 101 U/L (46-116) 12/07/18 13:05 Total Protein 6.9 g/dL (6.4-8.2) 12/07/18 13:05 Albumin 2.9 g/dL (3.4-5.0) L 12/07/18 13:05 TSH 0.39 uIU/mL (0.36-3.74) 12/07/18 13:05 Urine Color Yellow (Yellow) 12/07/18 14:21 Urine Clarity Sl cloudy (Clear) 12/07/18 14:21 Urine pH 6.0 (5-8) 12/07/18 14:21 Ur Specific [place] 1.010 (1.005-1.025) 12/07/18 14:21 Urine Protein Negative mg/dL (Negative) 12/07/18 14:21 Urine Ketones Negative mg/dL (Negative) 12/07/18 14:21 Urine Blood Trace-intact (Negative) H 12/07/18 14:21 Urine Nitrite Negative (Negative) 12/07/18 14:21 Urine Bilirubin Negative (Negative) 12/07/18 14:21 Urine Urobilinogen 0.2 EU/dL (Up TO 0.2) 12/07/18 14:21 Ur Leukocyte Esterase Negative (Negative) 12/07/18 14:21 Urine RBC 0-2 (0-2) 12/07/18 14:21 Urine WBC 0-2 HPF (0-5) 12/07/18 14:21 Ur Epithelial Cells Many HPF (Negative) 12/07/18 14:21 Urine Crystals Negative HPF (Negative) 12/07/18 14:21 Urine Bacteria Few HPF (Negative) 12/07/18 14:21 Urine Mucus Trace (Negative) 12/07/18 14:21 Urine Other (Negative) 12/07/18 14:21 Ur Culture Indicated? No/sq. contamination 12/07/18 14:21 Urine Glucose Negative mg/dL (Negative) 12/07/18 14:21 Salicylates < 2.8 mg/dL (2.8-20.0) L 12/07/18 13:05 Urine Opiates Screen Negative (Negative) 12/07/18 14:21 Urine Methadone Screen Negative (Negative) 12/07/18 14:21 Acetaminophen < 2 ug/mL (10-30) L 12/07/18 13:05 Ur Barbiturates Screen Negative (Negative) 12/07/18 14:21 Ur Tricyclics Screen Negative (Negative) 12/07/18 14:21 Ur Amphetamines Screen Negative (Negative) 12/07/18 14:21 U Benzodiazepines Scrn Positive (Negative) 12/07/18 14:21 Urine Cocaine Screen Positive (Negative) 12/07/18 14:21 Ur THC Screen Negative (Negative) 12/07/18 14:21 Ethyl Alcohol < 3.0 mg/dL (<3) 12/07/18 13:05
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
== END 2018-12-08 15:54 | disposition short-term general hospital (02) ==
LOC: ER 17:57 → MS 12-08 10:05
PROVIDERS: Admitting Provider Internal Medicine; Emergency Provider Emergency Medicine; Visit Provider Family Medicine
DX: R45.851 Suicidal ideations (principal); F11.20 Opioid dependence, uncomplicated; F32.9 Major depressive disorder, single episode, unspecified; F14.10 Cocaine abuse, uncomplicated; F13.10 Sedative, hypnotic or anxiolytic abuse, uncomplicated
CPT/HCPCS: 36415; 80053; 80307; 81025; 99220; 99233; 99239; 99285; J1650; 80320; 80329; 81003; 81015; 84443; 85025; 99217; 99284; G0378

== ENCOUNTER 2019-02-12 23:51 | Emergency (ER) | payer BC, SELFPAY ==
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
[2019-02-12 23:57] VITALS: BP 134/89; PULSE 86; RESP 16; TEMP 36.8; O2SAT 98
[2019-02-13] VITALS (38 sets, daily range): BP systolic 100–119; BP diastolic 63–82; PULSE 61–85; RESP 12–25; O2SAT 97–100
--- NOTE | 2019-02-13 00:40 | DI.CT_ITS ---
EXAM: CT HEAD WO CT HEAD WO CLINICAL HISTORY: trauma. trauma TECHNIQUE: Imaging Protocol: Axial computed tomography images with coronal and sagittal reformatted images were created and reviewed Noncontrast COMPARISON: No exams were available for comparison FINDINGS: The ventricular system is normal in appearance. No evidence of acute intracranial hemorrhage, mass effect, or midline shift. The orbital structures are unremarkable. The temporal bone structures appear intact. Calvarium: Normal. Visualized Paranasal sinuses/Mastoids: Clear. IMPRESSION: Normal cranial CT. DATA REPOSITORY: All CT scans at this facility are submitted to the National Radiology Data Registry (NRDR) Dose Index Registry (DIR) with the [employer] (ACR). RADIATION OPTIMIZATION: All CT scans at this facility use at least one of these dose optimization te chniques: automated exposure control; mA and/or kV adjustment per patient size (includes targeted exa ms where dose is matched to clinical indication); or iterative reconstruction.
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
--- NOTE | 2019-02-13 00:55 | NUR.NOTE ---
Nursing Note: Patient in bed, resting with eyes closed. Opens eyes when spoken to. Patient asks for phone healthcare liaison. Informed no healthcare liaison available.
--- NOTE | 2019-02-13 00:58 | NUR.NOTE ---
Nursing Note: 0021: urine negative.
== END 2019-02-13 01:11 | disposition home or self-care (01) ==
LOC: ER 02-13 01:19
PROVIDERS: Emergency Provider Emergency Medicine
DX: R51 Headache (principal); R04.0 Epistaxis; S80.211A Abrasion, right knee, initial encounter; S80.212A Abrasion, left knee, initial encounter; S60.512A Abrasion of left hand, initial encounter; V03.10XA Pedestrian on foot injured in collision with car, pick-up truck or van in traffic accident, initial encounter; Y04.0XXA Assault by unarmed brawl or fight, initial encounter
CPT/HCPCS: 81025; 99284; 70450

== ENCOUNTER 2019-03-08 19:30 | Emergency (ER) | payer BC, SELFPAY ==
[2019-03-08 19:29] VITALS: BP 142/10; PULSE 87; RESP 11; TEMP 36.6; O2SAT 100
[2019-03-08 19:37] VITALS: RESP 11
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
--- NOTE | 2019-03-08 20:19 | NUR.NOTE ---
To room 2 via Paulo from home with c/o heroin overdose. Pt states she injectd 2 bags of heroin after not using x 158 days. Pt was found on floor of bathroom, cyanotic and unresponsive. On EMS arrival given 4mg nasal narcan and ventilated x 15 minutes. Arrives awake and alert, tearful Denies SI or purposeful OD. hypertensive on arrival, pt denies hx of same. maintaining sat of 100% on RA. Sttes she lives at home with her parents. Takes suboxone daily, has not taken since 03/03 i was at the [facility] weekend. 2 attempts at IV, unable to lpace. Moreno MAURO in to place US guided IV. +BR, +flush. Pt up to BR with 1 assist and unsteady gait. back to bed lg GORDILLO. baseball coach in to speak to pt.
[2019-03-08 20:20] LABS: Abs Immature Grans 0.01 k/cumm (0.0-0.09); Absolute Basophil Count 0.02 k/cumm (0.0-0.2); Absolute Eosinophil Count 0.02 k/cumm (0.0-0.7); Absolute Lymphocyte Count 1.53 k/cumm (1.2-3.4); Absolute Monocyte Count 0.49 k/cumm (0.11-0.7); Basophils % 0.3; Eosinophils % 0.3; HCT 41.8 % (36.0-46.0); HGB 14.5 g/dL (12.0-15.5); Immature Grans % 0.2; Lymphocytes % 24.8; Mean Corp. HGB Concentration 34.7 g/dL (32.0-36.0); Mean Corpuscular Hemoglobin 30.8 pg (27.0-33.0); Mean Corpuscular Volume 88.7 fL (80-95); Mean Platelet Volume 10.8 fL (8.0-11.0); Monocytes % 7.9; Neutrophils % 66.5; Platelet Count 208 x1000/uL (130-400); RBC 4.71 m/cumm (4.00-5.20); RBC Distribution Width 12.5 % (11.7-14.6); White Blood Cell Count 6.17 k/cumm (4.4-10.8)
[2019-03-08 20:29] LABS: ALT 15 U/L (14-59); AST 20 U/L (15-37); Albumin 3.2 g/dL (3.4-5.0); Alkaline Phosphatase 96 U/L (46-116); Anion Gap 7.7 mmol/L (3-11); BUN 10 mg/dL (7-18); Bilirubin, Total 0.4 mg/dL (0.2-1.0); CO2 29.3 mmol/L (21.0-32.0); CREATININE 0.81 mg/dL (0.55-1.02); Calcium 8.8 mg/dL (8.5-10.1); Chloride 103 mmol/L (98-107); Glucose 131 mg/dL (74-106); Magnesium 2.1 mg/dL (1.8-2.4); Potassium 3.7 mmol/L (3.5-5.1); Sodium 140 mmol/L (136-145); Total Protein 7.7 g/dL (6.4-8.2)
[2019-03-08 20:30] LABS: Troponin I < 0.05 ng/Ml (<0.06)
--- NOTE | 2019-03-08 20:33 | NUR.NOTE ---
Pt offered nicotine patch, declined.
[2019-03-08 20:43] VITALS: BP 138/103; PULSE 76; RESP 13; O2SAT 98
[2019-03-08 20:46] LABS: *AMPHETAMINES SCREEN URINE Negative (Negative); *BARBITURATES SCREEN URINE Negative (Negative); *BENZODIAZEPINES SCREEN URINE POSITIVE (Negative); Cannabinoids THC POSITIVE (Negative); Cocaine Screen,Urine POSITIVE (Negative); METHADONE URINE SCREEN Negative (Negative); OPIATES URINE SCREEN POSITIVE (Negative)
[2019-03-08 20:46] LABS: ETHANOL BLOOD < 3.0 mg/dL (<3)
[2019-03-08 20:48] LABS: Tricyclic Antidepressants Negative (Negative)
--- NOTE | 2019-03-08 21:09 | DI.RAD_ITS ---
EXAM: XR CHEST 2V PA LATERAL CLINICAL HISTORY: overdose, hypoxia. TECHNIQUE: 2D digital imaging was performed. COMPARISON: No exams were available for comparison FINDINGS: LUNGS: Clear. No pleural abnormality seen. HEART: Normal. MEDIASTINUM: Normal. OTHER FINDINGS:Normal. IMPRESSION: No acute pulmonary findings.
--- NOTE | 2019-03-08 21:12 | NUR.NOTE ---
Spoke with dramatic coach Asael, he states he will f/u with pt this week. Pt initially refused xray, now agreeable to going.
--- NOTE | 2019-03-08 21:14 | DI.VRAD_ITS ---
PROCEDURE INFORMATION: Exam: XR Chest, 2 Views Exam date and time: 03/08/2019 9:08 PM Age: 23 years old Clinical history: Other: Overdose, hypoxia TECHNIQUE: Imaging protocol: XR of the chest Views: 2 views. COMPARISON: No relevant prior studies available. FINDINGS: Lungs: Lungs are adequately inflated and symmetric. No focal consolidation or pulmonary edema. Pleural space: No pleural effusion. No pneumothorax. Heart/Mediastinum: Cardiomediastinal contours within normal limits. Bones/joints: No acute osseous finding. Soft tissues: No focal soft tissue abnormailty. IMPRESSION: No acute findings. Dictated and Authenticated by: Spencer Whitehead MD. Ordering:TARA Aldana MD
[2019-03-08 22:11] VITALS: PULSE 54; RESP 12; O2SAT 99
[2019-03-08 23:27] VITALS: BP 86/47; PULSE 56; RESP 13; O2SAT 99
--- NOTE | 2019-03-08 23:28 | NUR.NOTE ---
BP low, MD Hawkins aware. Pt arousable to voice. States she is hungry. Provided with sandwich and fer leslie.
--- NOTE | 2019-03-08 23:38 | NUR.NOTE ---
Pt and family instructed/educated to remain NPO with verbal understanding. Nursing Note:
[2019-03-09 01:29] VITALS: BP 90/54; PULSE 59; RESP 14; O2SAT 98
--- NOTE | 2019-03-09 01:45 | NUR.NOTE ---
IV removed. Discharge instructions reviewed with verbal understanding. Encouraged to f/u with recovery coaches. Ambulated to exit with steady gait.
== END 2019-03-09 01:45 | disposition home or self-care (01) ==
PROVIDERS: Emergency Provider Physician Assistant
DX: T40.1X1A Poisoning by heroin, accidental (unintentional), initial encounter (principal); F14.120 Cocaine abuse with intoxication, uncomplicated; F11.20 Opioid dependence, uncomplicated; R09.02 Hypoxemia
CPT/HCPCS: 36415; 80053; 80307; 99285; 71046; 80320; 81025; 83735; 84484; 84703; 85025

== ENCOUNTER 2019-05-22 08:57 | Outpatient (CLI) | payer BC, SELFPAY ==
[2019-05-22 11:09] LABS: HCT 39.3 % (36.0-46.0); HGB 13.8 g/dL (12.0-15.5); Mean Corp. HGB Concentration 35.1 g/dL (32.0-36.0); Mean Corpuscular Hemoglobin 31.2 pg (27.0-33.0); Mean Corpuscular Volume 88.9 fL (80-95); Mean Platelet Volume 11.4 fL (8.0-11.0); Platelet Count 208 x1000/uL (130-400); RBC 4.42 m/cumm (4.00-5.20); RBC Distribution Width 12.2 % (11.7-14.6); White Blood Cell Count 5.42 k/cumm (4.4-10.8)
[2019-05-22 12:59] LABS: Calculated LDL 115 mg/dL (<100); Cholesterol 186 mg/dL (<200); HDL Cholesterol 58 mg/dL (40-60); Triglyceride 67 mg/dL (<150)
[2019-05-22 13:21] LABS: ALT 17 U/L (14-59); AST 15 U/L (15-37); Albumin 3.2 g/dL (3.4-5.0); Alkaline Phosphatase 90 U/L (46-116); Anion Gap 8.9 mmol/L (3-11); BUN 17 mg/dL (7-18); Bilirubin, Total 0.5 mg/dL (0.2-1.0); CO2 27.1 mmol/L (21.0-32.0); CREATININE 0.79 mg/dL (0.55-1.02); Calcium 8.3 mg/dL (8.5-10.1); Chloride 105 mmol/L (98-107); Glucose 83 mg/dL (74-106); Sodium 141 mmol/L (136-145); TSH (W/Ref FT4) 1.45 uIU/mL (0.36-3.74); Total Protein 6.6 g/dL (6.4-8.2); Vitamin B12 547 pg/mL (193-986)
== END 2019-05-22 09:17 ==
PROVIDERS: Visit Provider Nurse Practitioner
DX: E03.9 Hypothyroidism, unspecified (principal); F11.10 Opioid abuse, uncomplicated; F32.9 Major depressive disorder, single episode, unspecified; F41.9 Anxiety disorder, unspecified; G47.00 Insomnia, unspecified; D51.8 Other vitamin B12 deficiency anemias; Z13.6 Encounter for screening for cardiovascular disorders; N92.0 Excessive and frequent menstruation with regular cycle
CPT/HCPCS: 36415; 80053; 80061; 85027; 82607; 84443

== ENCOUNTER 2019-05-22 09:54 | Outpatient (REF) | payer BC, SELFPAY ==
--- NOTE | 2019-05-22 08:45 | PAPFT_PTH ---
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
[2019-05-23 14:59] LABS: GC Result Negative (Negative)
[2019-05-25 11:18] LABS: Chlamydia Result Positive (Negative)
== END 2019-05-22 10:14 ==
LOC: LBN 09:54
PROVIDERS: Visit Provider Nurse Practitioner
DX: Z12.4 Encounter for screening for malignant neoplasm of cervix (principal); Z11.51 Encounter for screening for human papillomavirus (HPV)
CPT/HCPCS: 87491; 87591; 88142

== ENCOUNTER 2019-09-24 12:41 | Outpatient (CLI) | payer BC, SELFPAY ==
[2019-09-24 14:30] LABS: Abs Immature Grans 0.02 k/cumm (0.0-0.09); Absolute Basophil Count 0.01 k/cumm (0.0-0.2); Absolute Eosinophil Count 0.03 k/cumm (0.0-0.7); Absolute Lymphocyte Count 1.16 k/cumm (1.2-3.4); Absolute Monocyte Count 0.37 k/cumm (0.11-0.7); Absolute Neutrophil Count 6.09 k/cumm (1.2-6.7); Basophils % 0.1; Eosinophils % 0.4; HCT 38.4 % (36.0-46.0); HGB 13.6 g/dL (12.0-15.5); Immature Grans % 0.3 %; Lymphocytes % 15.1; Mean Corp. HGB Concentration 35.4 g/dL (32.0-36.0); Mean Corpuscular Hemoglobin 31.3 pg (27.0-33.0); Mean Corpuscular Volume 88.5 fL (80-95); Mean Platelet Volume 10.8 fL (8.0-11.0); Monocytes % 4.8; Neutrophils % 79.3; Platelet Count 254 x1000/uL (130-400); RBC 4.34 m/cumm (4.00-5.20); RBC Distribution Width 12.2 % (11.7-14.6); White Blood Cell Count 7.68 k/cumm (4.4-10.8)
[2019-09-24 15:15] LABS: HCG Quant, Pregnancy 3619 mIU/mL (1-3)
== END 2019-09-24 13:01 ==
PROVIDERS: Visit Provider Obstetrics & Gynecology
DX: F11.20 Opioid dependence, uncomplicated (principal); O99.321 Drug use complicating pregnancy, first trimester
CPT/HCPCS: 36415; 86850; 86900; 86901; 84702; 85025

== ENCOUNTER 2019-09-26 11:34 | Outpatient (CLI) | payer BC, SELFPAY ==
--- NOTE | 2019-09-26 14:30 | DI.US_ITS ---
EXAM: US OB 1ST TRIMESTER CLINICAL HISTORY: Rule out ectopic Z34.90 SUPRERVISION NORMAL . COMPARISON: No exams were available for comparison TECHNIQUE: Transabdominal Transvaginal first trimester obstetrical ultrasound performed. FINDINGS: There is an intrauterine gestational sac present. Estimated gestational age based on sac size is 5 w eeks 3 days. The yolk sac was visualized. The pole is not identified at this time. Both ovaries were visualized and are grossly unremarkable. IMPRESSION: Intrauterine gestational sac and yolk sac visualized. Estimated gestational age is 5 weeks 3 days. The pole is not seen at this time. This may represent a very early . Follow-up with beta hCG levels and a repeat ultrasound is recommended to assess viability. DATA REPOSITORY:
== END 2019-09-26 11:54 ==
PROVIDERS: Visit Provider Obstetrics & Gynecology
DX: Z34.91 Encounter for supervision of normal pregnancy, unspecified, first trimester (principal); Z3A.01 Less than 8 weeks gestation of pregnancy
CPT/HCPCS: 76801

== ENCOUNTER 2019-09-26 14:17 | Outpatient (CLI) | payer BC, SELFPAY ==
[2019-09-26 15:52] LABS: HCG Quant, Pregnancy 8023 mIU/mL (1-3)
== END 2019-09-26 14:37 ==
PROVIDERS: Visit Provider Obstetrics & Gynecology
DX: Z34.91 Encounter for supervision of normal pregnancy, unspecified, first trimester (principal)
CPT/HCPCS: 36415; 84702

== ENCOUNTER 2019-11-12 20:43 | Outpatient (REF) | payer BC, SELFPAY ==
[2019-11-12 21:32] LABS: HCG Quant, Pregnancy 88 mIU/mL (1-3)
== END 2019-11-12 21:03 ==
LOC: NCHCN 20:43
PROVIDERS: Visit Provider Physician Assistant
DX: Z32.01 Encounter for pregnancy test, result positive (principal)
CPT/HCPCS: 84702

== ENCOUNTER 2019-11-23 02:34 | Outpatient (CLI) | payer BC, SELFPAY ==
[2019-11-23 15:37] LABS: HCG Quant, Pregnancy 39 mIU/mL (1-3)
== END 2019-11-23 02:54 ==
PROVIDERS: Physician Assistant
DX: Z32.01 Encounter for pregnancy test, result positive (principal)
CPT/HCPCS: 36415; 84702

== ENCOUNTER 2020-05-05 20:58 | Outpatient (REF) | payer BC, SELFPAY | END 2020-05-05 20:59 | disposition home or self-care (01) | LOC: LBN 20:58 | DX: N76.0 Acute vaginitis (principal) | CPT/HCPCS: 87480; 87510; 87660 ==

== ENCOUNTER 2020-06-20 20:50 | Outpatient (REF) | payer BC, SELFPAY | END 2020-06-20 20:51 | disposition home or self-care (01) | LOC: LBN 20:50 | PROVIDERS: Visit Provider Physician Assistant | DX: N76.0 Acute vaginitis (principal) | CPT/HCPCS: 87480; 87510; 87660 ==

== ENCOUNTER 2020-08-18 12:00 | Outpatient (REF) | payer BC, SELFPAY ==
[2020-08-20 14:05] LABS: Chlamydia Result Negative (Negative); GC Result Negative (Negative)
== END 2020-08-18 12:01 | disposition home or self-care (01) ==
LOC: LBN 12:00
PROVIDERS: Visit Provider Physician Assistant
DX: Z11.3 Encounter for screening for infections with a predominantly sexual mode of transmission (principal)
CPT/HCPCS: 87491; 87591; 87480; 87510; 87660

== ENCOUNTER 2021-03-06 18:56 | Outpatient (REF) | payer BC, SELFPAY ==
[2021-03-09 18:39] LABS: Chlamydia Result Negative (Negative); GC Result Negative (Negative)
== END 2021-03-06 18:57 | disposition home or self-care (01) ==
LOC: LBN 18:56
PROVIDERS: Visit Provider Family Medicine
DX: Z20.2 Contact with and (suspected) exposure to infections with a predominantly sexual mode of transmission (principal); N76.0 Acute vaginitis
CPT/HCPCS: 87491; 87591; 87480; 87510; 87660

== ENCOUNTER 2021-04-03 18:33 | Outpatient (REF) | payer BC, SELFPAY ==
[2021-04-03 19:13] LABS: Bilirubin Negative (Negative); Blood Moderate (Negative); Clarity Cloudy (Clear); Glucose Negative (Negative); Ketones Negative (Negative); Leukocyte Esterase Small (Negative); Nitrite Negative (Negative); Specific Gravity >= 1.030 (1.005-1.025); Urobilinogen 0.2 EU/dL (Up TO 0.2)
[2021-04-03 19:46] LABS: Bacteria Negative HPF (Negative); Casts Negative LPF (Negative); Crystals Negative HPF (Negative); Epithelial Cells Many HPF (Negative); Mucus Negative (Negative); Other Cells Few Renal (Negative); WBC >50 HPF (0-5)
[2021-04-03 19:47] LABS: C & S Indicated? No/Sq. Contamination; RBC 20-50 HPF (0-2)
== END 2021-04-03 18:34 | disposition home or self-care (01) ==
LOC: LBN 18:33
PROVIDERS: Visit Provider Family Medicine
DX: N76.0 Acute vaginitis; N39.0 Urinary tract infection, site not specified; R30.0 Dysuria
CPT/HCPCS: 81003; 81015; 87480; 87510; 87660

== ENCOUNTER 2021-06-19 19:40 | Outpatient (REF) | payer BC, SELFPAY ==
[2021-06-22 14:53] LABS: COVID-19 RT-PCR UVMMC Result Negative (Negative)
== END 2021-06-19 19:41 | disposition home or self-care (01) ==
LOC: LBN 19:40
PROVIDERS: Visit Provider Physician Assistant Medical
DX: Z20.822 Contact with and (suspected) exposure to COVID-19 (principal); J02.9 Acute pharyngitis, unspecified
CPT/HCPCS: U0003; 87070

== ENCOUNTER 2021-08-10 03:31 | Outpatient (CLI) | payer BC, SELFPAY ==
[2021-08-10 12:17] LABS: ALT 18 U/L (14-59); AST 17 U/L (15-37); Alkaline Phosphatase 90 U/L (46-116); Anion Gap 7.9 mmol/L (3-11); BUN 14 mg/dL (7-18); CO2 26.1 mmol/L (21.0-32.0); CREATININE 0.9 mg/dL (0.55-1.02); Chloride 103 mmol/L (98-107); Glucose 87 mg/dL (74-106); Potassium 3.7 mmol/L (3.5-5.1); Sodium 137 mmol/L (136-145); Total Protein 6.7 g/dL (6.4-8.2)
[2021-08-10 12:43] LABS: Bilirubin, Total 0.3 mg/dL (0.2-1.0)
[2021-08-11 10:17] LABS: Hepatitis C Ab w Rflx HCV PCR Negative (Negative)
== END 2021-08-10 03:32 | disposition home or self-care (01) ==
LOC: LBO 03:31
DX: Z00.00 Encounter for general adult medical examination without abnormal findings (principal); F14.10 Cocaine abuse, uncomplicated
CPT/HCPCS: 36415; 80053; 86803

== ENCOUNTER 2021-12-29 15:45 | Emergency (ER) | payer BC, SELFPAY ==
[2021-12-29] VITALS (86 sets, daily range): BP systolic 87–115; BP diastolic 50–72; PULSE 44–90; RESP 12–29; O2SAT 80–100
[2021-12-29 16:13] LABS: Abs Immature Grans 0.02 10^3/uL (0.0-0.06); Absolute Basophil Count 0.02 10^3/uL (0.0-0.2); Absolute Lymphocyte Count 2.85 10^3/uL (1.2-3.4); Absolute Monocyte Count 0.83 10^3/uL; Absolute Neutrophil Count 5.75 10^3/uL (1.2-6.7); Basophils % 0.2; HCT 37.7 % (36.0-46.0); HGB 13.6 g/dL (11.2-15.7); Immature Grans % 0.2; Lymphocytes % 30.1; MCH 31.5 pg (27.0-33.0); MCHC 36.1 %; MCV 87 fL (80-95); MPV 10.6 fL (8.0-11.0); Monocytes % 8.8; Neutrophils % 60.7; Platelet Count 285 10^3/uL (130-400); RBC 4.32 10^6/uL (3.93-5.22); RDW 12.4 % (11.7-14.6); RDW-SD 39.1 fL; WBC 9.47 10^3/uL (4.4-10.8)
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
[2021-12-29 16:38] LABS: ALT 22 U/L (14-59); AST 20 U/L (15-37); Albumin 3.4 g/dL (3.4-5.0); Alkaline Phosphatase 72 U/L (46-116); Anion Gap 10.9 mmol/L (3-11); BUN 12 mg/dL (7-18); Bilirubin, Total 0.5 mg/dL; CO2 26.1 mmol/L (21.0-32.0); Chloride 101 mmol/L (98-107); Glucose 88 mg/dL (74-106); Potassium 3.3 mmol/L (3.5-5.1); Sodium 138 mmol/L (136-145); TSH (W/Ref FT4) 0.21 uIU/mL; Total Protein 7.5 g/dL (6.4-8.2)
[2021-12-29 16:52] LABS: ETHANOL BLOOD < 3.0 mg/dL (<10)
[2021-12-29 17:18] LABS: Salicylate < 2.8 mg/dL (<2.8)
[2021-12-29 17:20] LABS: Acetaminophen < 2 ug/mL (10-30)
[2021-12-29 18:24] LABS: HCG Qual (Serum) Negative
--- NOTE | 2021-12-30 00:11 | ED.PROG_ITS ---
Date of service: 12/30/21 Time of Service: 00:11 Medical Decision Making Patient signed out to me pending evaluation once mental status cleared. Patient now awake and alert, communicative, ambulatory. Patient denies SI and uses drugs recreationally. She is requesting discharge and is working on finding a ride. She has no physical complaint. Return precautions provided. Lab Data Lab results reviewed: Yes I reviewed the patient's lab results. Sign Out Sign Out Data: Sign Out Comment: dropped off my ?friend after ingesting 3-4 xanax, drowsy but arousable, not answering most questions, will need reassessment when more awake and alert Last updated by Hitesh Hawkins MD at 12/29/21 18:45 Discharge Plan Disposition Patient Disposition: HOME Condition: Improving Discharge Details Clinical Impression: Altered mental status, unspecified, Drug overdose Primary Care Provider: Sanam Zuniga ED Provider: Allen Montana [place] Meds and New Rx's Prescriptions: No Action gabapentin 300 mg capsule 300 mg PO TID buprenorphine-naloxone [Suboxone] 8-2 mg film 1 film sublingual BID lamotrigine 100 mg tablet 100 mg PO DAILY Qty: 90 0RF metronidazole 0.75 % gel 1 appful vaginal .2xw Qty: 70 0RF Discharge Instructions Instructions: Altered Mental Status (ED) Additional Instructions: You were brought in by a friend with altered mental status and lethargy after taking unknown amount of benzodiazepines. You were monitored here for a number of hours. Your laboratory studies look fine. Your vital signs are good. The [facility] in [facility] is available to you if you feel you need help w ith drug use. You should return to the ED for any unsafe feelings, withdrawal symptoms, other concerns Referrals: [facility] [Outside]
== END 2021-12-30 00:15 | disposition home or self-care (01) ==
PROVIDERS: Emergency Medicine; Emergency Provider Emergency Medicine
DX: R41.82 Altered mental status, unspecified (principal); T42.4X1A Poisoning by benzodiazepines, accidental (unintentional), initial encounter; R40.0 Somnolence; Z77.22 Contact with and (suspected) exposure to environmental tobacco smoke (acute) (chronic)
CPT/HCPCS: 80053; 99282; 80320; 80329; 83735; 84443; 84703; 85025; 99284

== ENCOUNTER 2022-03-19 14:50 | Outpatient (REF) | payer BC, SELFPAY ==
--- OUTSIDE RECORDS SUMMARY | 2022-03-19 14:52 | XMS_ITS ---
:[address] 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 ALLERGIES No Known Allergies ENCOUNTERS Encounter Location Date Diagnosis [facility] 7 [facility] Mar, [place] [id number] [facility] [address] [place] [address] [address] Mar, [address] Feb, [place] [address] Feb, [place] [id number] [address] Feb, [place] [id number] [facility] 7 [facility] Jan, [place] [address] remission F11.[address] Jan, Opioid depend ence in [place] remission F11.[id number] Dec, [place] [address] [facility] [address] [facility] [address] Dec, [place] [address] [address] [facility] [address] [facility] Dec, Opioid depend ence in [place] remission F11.21 [address] [facility] [address] Nov, [place] [address] remission F11.2 1 [facility] [address] 18 Nov, 2019 Opioid depend ence [place] remission F11.21 [id number] [facility] 173 [facility] Oct, [place] [address] remission F1 1.21 [facility] [address] [facility] 17 Oct, 2019 Opioid depend ence [place] remission F11.[address] [facility] [address] [facility] Oct, Opiate depend ence F11.20 [place] [address] [facility] [address] [facility] Oct, Opioid depend ence in [place], [place] remission F11.[address] [facility] [address] [facility] [address] Sep, [place] [address] [facility] 173 [facility] Sep, [place] [address] [facility] [address] [facility] Sep, Opiate depend [place]ce F11.20 [place] [address] [facility] [address] 17 Sep, 2019 [place] [address] [facility] 260 [facility] [address] Sep, [place] [address] [facility] [address] Aug, [place] [address] [facility] [address] [facility] Aug, Opiate depend ence F11.20 [place] [address] [facility] [address] [facility] Aug, Opiate depend [place]ce [place]11.20 [place] [address] [facility] [address] Aug, [place] [address] [facility] [address] Aug, Opiate depend [place]ce F11.20 [place] [address] [facility] [address] [facility] Aug, Opiate depend [place]ce [place]11.20 [place] [address] [facility] [address] July, [place] [address] [facility] [address] July, Opiate depend [place]ce F11.20 [place] [address] [facility] [address] July, Opiate depend ence F11.20 [place] [address] [facility] July, [place] [address] [facility] [address] [facility] July, Opiate depend ence F11.[address] [place] [address] [facility] [address] [facility] July, Opiate depend ence F11.[address] [place] [address] [facility] [address] [facility] Jun, Opiate depend ence F11.[address] [place] [address] [facility] [address] [facility] Jun, Opiate depend ence F11.[address] [place] [address] [facility] [address] [facility] Jun, Opiate depend ence F11.[address] [place] [address] [facility] [address] [facility] Jun, Opiate depend ence F11.[address] [place] [address] [facility] [address] [facility] Jun, [place] [address] [facility] [address] [facility] May, Uncomplicated opioid [address] [place], [place] dependence F11.20 and [address] Opiate dependenc e F11.20 [facility] [address] [facility] May, [place] [address] [facility] 173 [facility] May, [place] [address] [facility] 260 [facility] May, Opiate depend ence F11.[address] [place] [address] [facility] [address] [facility] Apr, [place] [address] [facility] [address] [facility] Apr, Opiate depend ence F11.[address] [place] [address] [facility] [address] [facility] Apr, Opiate depend ence F11.[address] [place] [address] [facility] 173 [facility] Apr, Opiate depen dence F11.20 [place] [address] [facility] [address] [facility] Apr, Opiate depend ence F11.[address] [place] [address] [facility] [address] [facility] Apr, [place] [address] [facility] [address] [facility] Apr, Opiate depend ence F11.[address] [place] [address] [facility] [address] [facility] Apr, Opiate depend ence F11.20 [place] [address] [facility] 260 [facility] Mar, Opiate depend ence F11.20 [place] [address] [facility] [address] [facility] Mar, [place] [address] [facility] [address] [facility] Mar, Opiate depend ence F11.20 [place] [address] [facility] [address] [facility] Mar, Uncomplicated opioid [place] dependence F11.20 and [address] Opiate dependenc e F11.20 [facility] 173 [facility] Mar, Opiate dep endence F11.20 [place] [address] [facility] [address] [facility] Mar, [facility] [place] [address] [facility] [address] [facility] Mar, Opiate depend ence F11.20 [place] [address] [facility] [address] Feb, Opiate depende nce F11.20 [place] [address] [facility] [address] 17 Feb, 2019 Opiate depende nce F11.20 [place] [address] [facility] [address] Feb, [place] [address] [facility] [address] Feb, Opiate depende nce F11.20 [place] [address] [address] [address] Feb, Opiate depende nce F11.20 [place] [address] [address] [address] Jan, Opiate depende nce F11.20 [place] [address] [address] [address] Jan, Opiate depende nce F11.20 [place] [address] [facility] 173 [facility] Jan, Opioid depen dence F11.20 [place] [address] [address] [address] 12 Jan, 2019 [place] [address] [address] [address] 12 Jan, 2019 [place] [address] dependence F 11.20 and Opiate dependenc e F11.20 [facility] [address] [facility] [address] Jan, Opioid depende nce F11.20 [place] [address] [facility] [address] [facility] [address] Dec, Opiate depende nce F11.20 [place] [address] [address] [facility] [address] Dec, Opiate depende nce F11.20 [place] [address] [facility] [address] [facility] [address] Dec, Opiate depende nce F11.20 [place] [address] [facility] [address] [facility] [address] Dec, [place] [address] IMMUNIZATIONS No Known Immunizations SOCIAL HISTORY Never Assessed REASON FOR REFERRAL FUNCTIONAL STATUS PLAN OF CARE Activity Details Future Test [facility]- DRUG OF ABUSE SCREEN,URINE [id number] Future Test [facility]- DRUG OF ABUSE SCREEN,URINE [id number] Future Test [facility]- DRUG OF ABUSE SCREEN,URINE [id number] Future Test [facility]- DRUG OF ABUSE SCREEN,URINE [id number] Future Test [facility]- DRUG OF ABUSE SCREEN,URINE [id number] Future Test [facility]- DRUG OF ABUSE SCREEN,URINE [id number] Future Test [facility]- DRUG OF ABUSE SCREEN,URINE [id number] Future Test [facility]- DRUG OF ABUSE SCREEN,URINE [id number] Future Test [facility]- DRUG OF ABUSE SCREEN,URINE [id number] Future Test [facility]- DRUG OF ABUSE SCREEN,URINE [id number] Future Test [facility]- DRUG OF ABUSE SCREEN,URINE [id number] Future Test [facility]- DRUG OF ABUSE SCREEN,URINE [id number] Future Test [facility]- DRUG OF ABUSE SCREEN,URINE [id number] Future Test [facility]- DRUG OF ABUSE SCREEN,URINE [id number] Future Test [facility]- DRUG OF ABUSE SCREEN,URINE [id number] Future Test [facility]- DRUG OF ABUSE SCREEN,URINE [id number] Future Test [facility]- DRUG OF ABUSE SCREEN,URINE [id number] Future Test [facility]- DRUG OF ABUSE SCREEN,URINE [id number] Future Test [facility]- DRUG OF ABUSE SCREEN,URINE [id number] Future Test [facility]- DRUG OF ABUSE SCREEN,URINE [id number] Future Test [facility]- DRUG OF ABUSE SCREEN,URINE [id number] Future Test [facility]- DRUG OF ABUSE SCREEN,URINE [id number] Future Test [facility] 140241 07 Future Test [facility]- DRUG OF ABUSE SCREEN,URINE [id number] Future Test [facility] [id number] 24 Future Test [facility] [id number] 17 Future Test [facility]- DRUG OF ABUSE SCREEN,URINE [id number] Future Test [facility] [id number] 10 Future Test [facility]- DRUG OF ABUSE SCREEN,URINE [id number] Future Test [facility] [id number] 03 Future Test [facility]- DRUG OF ABUSE SCREEN,URINE [id number] Future Test [facility] [id number] 26 Future Test [facility]- DRUG OF ABUSE SCREEN,URINE [id number] Future Test [facility] [id number] 19 Future Test [facility]- DRUG OF ABUSE SCREEN,URINE [id number] Future Test [facility] [id number] 12 Future Test [facility]- DRUG OF ABUSE SCREEN,URINE [id number] Future Test [facility]- DRUG OF ABUSE SCREEN,URINE [id number] Future Test [facility] [id number] 05 Future Test [facility]- DRUG OF ABUSE SCREEN,URINE [id number] VITAL SIGNS Height 63 in 2020-02-04 Height 63 in 2020-01-07 Height 63 in 2019-12-17 Height 63 in 2019-11-26 Height 63 in 2019-11-05 Height 63 in 2019-10-15 Height 63 in 2019-09-24 Height 63 in 2019-09-03 Height 63 in 2019-08-17 Height 63 in 2019-08-06 Height 63 in 2019-07-23 Height 63 in 2019-07-09 Height 63 in 2019-06-21 Height 63 in 2019-06-05 Height 63 in 2019-05-22 Height 63 in 2019-05-15 Height 63 in 2019-05-08 Height 63 in 2019-05-01 Height 63 in 2019-04-24 Height 63 in 2019-04-17 Height 63 in 2019-04-12 Height 63 in 2019-04-03 Height 63 in 2019-03-20 Height 63 in 2019-03-13 Height 63 in 2019-03-06 Height 63 in 2019-02-27 Height 63 in 2019-02-20 Height 63 in 2019-02-13 Height 63 in 2019-02-06 Height 63 in 2019-01-30 Height 63 in 2019-01-23 Weight 112.8 lbs 2020-02-04 Weight 117.2 lbs 2020-01-07 Weight 114.8 lbs 2019-12-17 Weight 114.8 lbs 2019-11-26 Weight 118 lbs 2019-11-05 Weight 115 lbs 2019-10-15 Weight 111.8 lbs 2019-09-24 Weight 115 lbs 2019-09-03 Weight 119.0 lbs 2019-08-17 Weight 111 lbs 2019-08-06 Weight 116 lbs 2019-07-23 Weight 116 lbs 2019-07-09 Weight 107 lbs 2019-06-21 Weight 107.6 lbs 2019-06-05 Weight 110 lbs 2019-05-22 Weight 112.0 lbs 2019-05-15 Weight 110.2 lbs 2019-05-08 Weight 110.4 lbs 2019-05-01 Weight 110.2 lbs 2019-04-24 Weight 107.6 lbs 2019-04-17 Weight 110 lbs 2019-04-12 Weight 107.8 lbs 2019-04-03 Weight 113.0 lbs 2019-03-20 Weight 113 lbs 2019-03-13 Weight 112.6 lbs 2019-03-06 Weight 111.6 lbs 2019-02-27 Weight 112.6 lbs 2019-02-20 Weight 116.4 lbs 2019-02-13 Weight 116.8 lbs 2019-02-06 Weight 113.8 lbs 2019-01-30 Weight 103.3 lbs 2019-01-23 BMI 19.98 kg/m2 2020-02-04 BMI 20.76 kg/m2 2020-01-07 BMI 20.33 kg/m2 2019-12-17 BMI 20.33 kg/m2 2019-11-26 BMI 20.90 kg/m2 2019-11-05 BMI 20.37 kg/m2 2019-10-15 BMI 19.80 kg/m2 2019-09-24 BMI 20.37 kg/m2 2019-09-03 BMI 21.08 kg/m2 2019-08-17 BMI 19.66 kg/m2 2019-08-06 BMI 20.55 kg/m2 2019-07-23 BMI 20.55 kg/m2 2019-07-09 BMI 18.95 kg/m2 2019-06-21 BMI 19.06 kg/m2 2019-06-05 BMI 19.48 kg/m2 2019-05-22 BMI 19.84 kg/m2 2019-05-15 BMI 19.52 kg/m2 2019-05-08 BMI 19.55 kg/m2 2019-05-01 BMI 19.52 kg/m2 2019-04-24 BMI 19.06 kg/m2 2019-04-17 BMI 19.48 kg/m2 2019-04-12 BMI 19.09 kg/m2 2019-04-03 BMI 20.01 kg/m2 2019-03-20 BMI 20.01 kg/m2 2019-03-13 BMI 19.94 kg/m2 2019-03-06 BMI 19.77 kg/m2 2019-02-27 BMI 19.94 kg/m2 2019-02-20 BMI 20.62 kg/m2 2019-02-13 BMI 20.69 kg/m2 2019-02-06 BMI 20.16 kg/m2 2019-01-30 BMI 18.30 kg/m2 2019-01-23 Temperature 98.1 degrees Fahrenheit 2020-02-04 Temperature 97.8 degrees Fahrenheit 2020-01-07 Temperature 97.9 degrees Fahrenheit 2019-12-17 Temperature 97.6 degrees Fahrenheit 2019-11-26 Temperature 97.5 degrees Fahrenheit 2019-11-05 Temperature 98.6 degrees Fahrenheit 2019-10-15 Temperature 98.1 degrees Fahrenheit 2019-09-24 Temperature 98.4 degrees Fahrenheit 2019-09-03 Temperature 97.2 degrees Fahrenheit 2019-08-17 Temperature 97.7 degrees Fahrenheit 2019-08-06 Temperature 98.8 degrees Fahrenheit 2019-07-23 Temperature 99.2 degrees Fahrenheit 2019-07-09 Temperature 98.8 degrees Fahrenheit 2019-06-21 Temperature 98.0 degrees Fahrenheit 2019-06-05 Temperature 98.3 degrees Fahrenheit 2019-05-22 Temperature 99.0 degrees Fahrenheit 2019-05-15 Temperature 97.9 degrees Fahrenheit 2019-05-08 Temperature 98.0 degrees Fahrenheit 2019-05-01 Temperature 97.9 degrees Fahrenheit 2019-04-24 Temperature 97.0 degrees Fahrenheit 2019-04-17 Temperature 99 degrees Fahrenheit 2019-04-12 Temperature 98.2 degrees Fahrenheit 2019-04-03 Temperature 98.5 degrees Fahrenheit 2019-03-20 Temperature 98.6 degrees Fahrenheit 2019-03-13 Temperature 98.1 degrees Fahrenheit 2019-03-06 Temperature 98.8 degrees Fahrenheit 2019-02-27 Temperature 99.2 degrees Fahrenheit 2019-02-20 Temperature 98.7 degrees Fahrenheit 2019-02-13 Temperature 98.3 degrees Fahrenheit 2019-02-06 Temperature 98.4 degrees Fahrenheit 2019-01-30 Temperature 98.7 degrees Fahrenheit 2019-01-23 Heart Rate 70 /min 2020-02-04 Heart Rate 89 /min 2020-01-07 Heart Rate 74 /min 2019-12-17 Heart Rate 84 /min 2019-11-26 Heart Rate 88 /min 2019-11-05 Heart Rate 69 /min 2019-10-15 Heart Rate 90 /min 2019-09-24 Heart Rate 80 /min 2019-09-03 Heart Rate 68 /min 2019-08-17 Heart Rate 104 /min 2019-08-06 Heart Rate 76 /min 2019-07-23 Heart Rate 95 /min 2019-07-09 Heart Rate 120 /min 2019-06-21 Heart Rate 108 /min 2019-06-05 Heart Rate 80 /min 2019-05-22 Heart Rate 77 /min 2019-05-15 Heart Rate 81 /min 2019-05-08 Heart Rate 85 /min 2019-05-01 Heart Rate 96 /min 2019-04-24 Heart Rate 97 /min 2019-04-17 Heart Rate 104 /min 2019-04-12 Heart Rate 102 /min 2019-04-03 Heart Rate 98 /min 2019-03-20 Heart Rate 74 /min 2019-03-13 Heart Rate 70 /min 2019-03-06 Heart Rate 97 /min 2019-02-27 Heart Rate 116 /min 2019-02-20 Heart Rate 86 /min 2019-02-13 Heart Rate 71 /min 2019-02-06 Heart Rate 86 /min 2019-01-30 Heart Rate 70 /min 2019-01-23 Respiratory Rate 17 /min 2020-02-04 Respiratory Rate 17 /min 2020-01-07 Respiratory Rate 17 /min 2019-12-17 Respiratory Rate 17 /min 2019-11-26 Respiratory Rate 17 /min 2019-11-05 Respiratory Rate 16 /min 2019-10-15 Respiratory Rate 17 /min 2019-09-24 Respiratory Rate 16 /min 2019-09-03 Respiratory Rate 16 /min 2019-08-17 Respiratory Rate 18 /min 2019-08-06 Respiratory Rate 16 /min 2019-07-23 Respiratory Rate 16 /min 2019-07-09 Respiratory Rate 16 /min 2019-06-21 Respiratory Rate 17 /min 2019-06-05 Respiratory Rate 16 /min 2019-05-22 Respiratory Rate 16 /min 2019-05-15 Respiratory Rate 16 /min 2019-05-08 Respiratory Rate 16 /min 2019-05-01 Respiratory Rate 16 /min 2019-04-24 Respiratory Rate 16 /min 2019-04-17 Respiratory Rate 16 /min 2019-04-12 Respiratory Rate 16 /min 2019-04-03 Respiratory Rate 17 /min 2019-03-20 Respiratory Rate 16 /min 2019-03-13 Respiratory Rate 16 /min 2019-03-06 Respiratory Rate 12 /min 2019-02-27 Respiratory Rate 16 /min 2019-02-20 Respiratory Rate 18 /min 2019-02-13 Respiratory Rate 16 /min 2019-02-06 Respiratory Rate 14 /min 2019-01-30 Respiratory Rate 14 /min 2019-01-23 Oximetry 97 % 2020-02-04 Oximetry 98 % 2020-01-07 Oximetry 96 % 2019-12-17 Oximetry 97 % 2019-11-26 Oximetry 98 % 2019-11-05 Oximetry 98 % 2019-10-15 Oximetry 98 % 2019-09-24 Oximetry 99 % 2019-09-03 Oximetry 97 % 2019-08-17 Oximetry 98 % 2019-08-06 Oximetry 97 % 2019-07-23 Oximetry 98 % 2019-07-09 Oximetry 98 % 2019-06-21 Oximetry 98 % 2019-06-05 Oximetry 98 % 2019-05-22 Oximetry 98 % 2019-05-15 Oximetry 97 % 2019-05-08 Oximetry 98 % 2019-05-01 Oximetry 97 % 2019-04-24 Oximetry 98 % 2019-04-17 Oximetry 99 % 2019-04-12 Oximetry 98 % 2019-04-03 Oximetry 98 % 2019-03-20 Oximetry 97 % 2019-03-13 Oximetry 97 % 2019-03-06 Oximetry 98 % 2019-02-27 Oximetry 98 % 2019-02-20 Oximetry 99 % 2019-02-13 Oximetry 98 % 2019-02-06 Oximetry 98 % 2019-01-30 Oximetry 97 % 2019-01-23 Blood pressure systolic 99 mm Hg 2020-02-04 Blood pressure diastolic 65 mm Hg 2020-02-04 MEDICATIONS Medication Instructions Dosage Frequency Start End Duration Statu s Date Date Buprenorphine Sublingual Two 1 film 12h 28 days Act micheline HCl-Naloxone HCl times a day under the 8-2 MG tongue and allow to dissolve traZODone HCl 50 Orally Once a 1 tablet at 24h 30 da y(s) Active MG day bedtime as needed lamoTRIgine 200 Orally Once a 1 tablet 24h A ctive MG day Gabapentin 300 MG Orally BID 1 capsule 12h 13 August, ctive 2019 PROCEDURES Procedure Date Ordered Result Body Site DW, [facility] CONFIR[facility]ATION ([id number]) Feb 13, 2019 DW, F[facility]L CONFIRMATION (63143) Feb 20, 2019 DW, DRUG OF ABUSE SCREEN,URINE (28529) Feb 20, 2019 DW, DRUG OF ABUSE SCREEN,URINE (22247) Jan 30, 2019 DRUG TEST [facility] IN[facility] (44748) Feb 04, 2020 DW, DRUG OF ABUSE SCREEN,URINE (32327) Mar 13, 2019 Alcohol and/or drug services Dec 14, 2019 DRUG TEST [facility] INSTRM[facility] (38171) Jan 07, 2020 DW, DRUG OF ABUSE SCREEN,URINE (39738) Mar 20, 2019 DRUG TEST [facility] (87404) Nov 26, 2019 DW, DRUG OF ABUSE SCREEN,URINE (52924) Feb 27, 2019 DW, DRUG OF ABUSE SCREEN,URINE (16637) Mar 06, 2019 [facility]-DRUG OF ABUSE SCREEN,URINE (37156) Nov 05, 2019 [facility]-DRUG OF ABUSE SCREEN,URINE (50188) July 23, 2019 [facility] CONFIR[facility] (72367) May 15, 2019 [facility]-DRUG OF ABUSE SCREEN,URINE (96082) May 08, 2019 [facility]-DRUG OF ABUSE SCREEN,URINE (60637) August 17, 2019 [facility] (08307) Apr 17, 2019 Alcohol and/or drug services September 21, 2019 [facility]-DRUG OF ABUSE SCREEN,URINE (74527) September 03, 2019 [facility] (38070) Apr 24, 2019 [facility]-DRUG OF ABUSE SCREEN,URINE (84149) August 06, 2019 [facility]-DRUG OF ABUSE SCREEN,URINE (74367) September 24, 2019 [facility] (00123) Apr 03, 2019 [facility]-DRUG OF ABUSE SCREEN,URINE (13202) May 01, 2019 [facility]-DRUG OF ABUSE SCREEN,URINE (71326) May 15, 2019 [facility]-DRUG OF ABUSE SCREEN,URINE (58094) June 05, 2019 [facility]-DRUG OF ABUSE SCREEN,URINE (75438) July 09, 2019 DRUG TEST [facility] INSTRMNT (69282) Dec 17, 2019 [facility] (26188) May 22, 2019 DW, FENTANYL CONFIRMATION (31887) Feb 27, 2019 [facility]-DRUG OF ABUSE SCREEN,URINE (16646) May 22, 2019 DW, FENTANYL CONFIRMATION (56136) Jan 30, 2019 Alcohol and/or drug services Dec 28, 2019 DW, FENTANYL CONFIRMATION ([id number]) Mar 20, 2019 Alcohol and/or drug services Feb 01, 2020 DW, FENTANYL CONFIRMATION (36564) Mar 13, 2019 DW, FENTANYL CONFIRMATION (87339) Jan 16, 2019 DW, DRUG OF ABUSE SCREEN,URINE ([id number]) Feb 13, 2019 DW, FENTANYL CONFIRMATION (11270) Mar 06, 2019 DW, FENTANYL CONFIRMATION (83481) Jan 23, 2019 [facility] (81141) August 06, 2019 [facility] (15886) May 08, 2019 DW, DRUG OF ABUSE SCREEN,URINE (27888) Jan 23, 2019 [facility]-DRUG OF ABUSE SCREEN,URINE (35715) October 15, 2019 DW, DRUG OF ABUSE SCREEN,URINE (39462) Jan 16, 2019 Alcohol and/or drug services August 06, 2019 [facility] ([id number]) June 05, 2019 [facility] (61206) July 09, 2019 [facility] (10976) May 01, 2019 [facility] (67189) September 03, 2019 [facility]-DRUG OF ABUSE SCREEN,URINE (07374) Apr 17, 2019 [facility]-DRUG OF ABUSE SCREEN,URINE (35992) Apr 24, 2019 [facility] (32764) July 23, 2019 [facility] (51352) August 17, 2019 Alcohol and/or drug services August 17, 2019 Alcohol and/or drug services August 30, 2019 Alcohol and/or drug services Nov 12, 2019 [facility]-DRUG OF ABUSE SCREEN,URINE ([id number]) Apr 03, 2019 ALCOHOL AND/OR DRUG ASSESSMENT July 09, 2019 Alcohol and/or drug services July 23, 2019 RESULTS Name Result Date Reference Range [facility]- DRUG OF ABUSE SCREEN,URINE 2020-01 AMP neg JYOTHI neg BENZO neg Buprenorphine pos Cocaine neg METHAMP neg Methadone neg Opiates neg OXY neg PCP neg Propoxyphene Marijuana pos Tricyclic Antidepressants Drug Screen Interpretation MDMA neg BUPRENORPHINE MANAGEMENT 2020-02-04 BUPRENORPHINE MANAGEMENT 2020-01-07 [facility]- DRUG OF ABUSE SCREEN,URINE 2019-12 AMP neg JYOTHI neg BENZO neg Buprenorphine pos Cocaine neg METHAMP neg Methadone neg Opiates neg OXY neg PCP neg Propoxyphene Marijuana pos Tricyclic Antidepressants Drug Screen Interpretation MDMA neg [facility]- DRUG OF ABUSE SCREEN,URINE 2019-11 AMP neg JYOTHI neg BENZO neg Buprenorphine pos Cocaine neg METHAMP neg Methadone neg Opiates neg OXY neg PCP neg Propoxyphene Marijuana pos Tricyclic Antidepressants Drug Screen Interpretation MDMA neg BUPRENORPHINE MANAGEMENT 2019-12-17 BUPRENORPHINE MANAGEMENT 2019-11-26 [facility]- DRUG OF ABUSE SCREEN,URINE 2019-10 AMP neg JYOTHI neg BENZO neg Buprenorphine positive Cocaine neg METHAMP neg Methadone neg Opiates neg OXY neg PCP neg Propoxyphene Marijuana positive Tricyclic Antidepressants Drug Screen Interpretation MDMA neg [facility]- DRUG OF ABUSE SCREEN,URINE 2019-10 AMP neg JYOTHI neg BENZO neg Buprenorphine positive Cocaine neg METHAMP neg Methadone neg Opiates neg OXY neg PCP neg Propoxyphene Marijuana pos Tricyclic Antidepressants Drug Screen Interpretation MDMA neg BUPRENORPHINE MANAGEMENT 2019-11-05 [facility]- DRUG OF ABUSE SCREEN,URINE 2019-09 AMP neg JYOTHI neg BENZO neg Buprenorphine positive Cocaine neg METHAMP neg Methadone neg Opiates neg OXY neg PCP neg Propoxyphene Marijuana neg Tricyclic Antidepressants Drug Screen Interpretation MDMA neg BUPRENORPHINE MANAGEMENT 2019-10-15 CBC WITH AUTO DIFF 2019-09-24 CORRECT ANC WBC 7.68 HGB 13.6 HCT 38.4 PLATELET 254 RBC MCV MCH MCHC RDW MPV ANC #IG #LYMPH #EOS #MONO #BASO NEUTROPHIL % IG% LYMPHOCYTE % MONOCYTE % EOSINOPHIL % BASOPHIL % ATYP LYMPH PLT MORPH PROMYELO MACRO MICRO NRBC HYPO BLAST ANISO BAND BASO EOS LYMPH META MONO MYELO POIK RBC MORPH SEG MANUAL DIFF #IMM GRAN %IMM GRAN FENTANYL CONFIRMATION 2019-09-24 Fentanyl Confirmation Negative Tzzgvt=[id number] [facility]- DRUG OF ABUSE SCREEN,URINE 2019-08 AMP neg JYOTHI neg BENZO neg Buprenorphine pos Cocaine neg METHAMP neg Methadone neg Opiates neg OXY neg PCP neg Propoxyphene Marijuana pos Tricyclic Antidepressants Drug Screen Interpretation MDMA neg NCRC/[facility]OR[facility]AY- DRUG OF ABUSE SCREEN,URINE 2019-08 AMP neg JYOTHI neg BENZO neg Buprenorphine Pos Cocaine neg METHAMP neg Methadone neg Opiates neg OXY neg PCP neg Propoxyphene Marijuana pos Tricyclic Antidepressants Drug Screen Interpretation MDMA neg FENTANYL CONFIRMATION 2019-09-03 Fentanyl Confirmation Negative Kiljyz=779 FENTANYL CONFIRMATION 2019-08-17 Fentanyl Confirmation Negative Kombrm=083 N[facility]ORWAY- DRUG OF ABUSE SCREEN,URINE 2019-07 AMP neg JYOTHI neg BENZO neg Buprenorphine positive Cocaine neg METHAMP neg Methadone neg Opiates neg OXY neg PCP neg Propoxyphene Marijuana positive Tricyclic Antidepressants Drug Screen Interpretation MDMA neg NCRC/DOORWAY- DRUG OF ABUSE SCREEN,URINE 2019-07 AMP neg JYOTHI neg BENZO neg Buprenorphine positive Cocaine neg METHAMP neg Methadone neg Opiates neg OXY neg PCP neg Propoxyphene Marijuana positive Tricyclic Antidepressants Drug Screen Interpretation MDMA neg COMPMET 2019-08-06 GLUC 93 74-106 BUN 15 7-25 CREATS 0.92 0.60-1.20 EGFR >60 >=60 NA 138 136-144 K+ 3.8 3.5-5.1 CL 105 98-110 CO2 23 22-32 CA 9.0 8.6-10.3 TP 7.1 6.0-8.3 ALB 4.2 3.4-5.0 TBIL 0.6 0.3-1.2 DBIL 0.1 0.0-0.2 ALKP 74 34-104 AST 17 13-39 ALT 13 7-52 HIV 1/2 ANTIBODIES 2019-08-06 HIV Screen 4th Generation wRfx Non Reactive N on Reactive FENTANYL CONFIRMATION 2019-08-06 Fentanyl Confirmation Negative Zhtgvj=333 HEP-C, AB Screen ([id number]) 2019-08-06 Hep C Virus Ab 0.1 0.0-0.9 FENTANYL CONFIRMATION 2019-07-23 Fentanyl Confirmation Negative Sgkeih=998 [facility]AY- DRUG OF ABUSE SCREEN,URINE 2019-06 AMP neg JYOTHI neg BENZO neg Buprenorphine Positive Cocaine neg METHAMP neg Methadone neg Opiates neg OXY neg PCP neg Propoxyphene Marijuana positive Tricyclic Antidepressants Drug Screen Interpretation MDMA neg NCRC/[facility]ORWAY- DRUG OF ABUSE SCREEN,URINE 2019-06 AMP neg JYOTHI neg BENZO neg Buprenorphine pos Cocaine neg METHAMP neg Methadone neg Opiates neg OXY neg PCP neg Propoxyphene Marijuana pos Tricyclic Antidepressants Drug Screen Interpretation MDMA neg FENTANYL CONFIRMATION 2019-07-09 Fentanyl Confirmation Negative Ruraba=302 FENTANYL CONFIRMATION 2019-06-21 Fentanyl Confirmation Negative Mmswds=768 N[facility]/DOORWAY- DRUG OF ABUSE SCREEN,URINE 2019-05 AMP Neg JYOTHI Neg BENZO Neg Buprenorphine Positive Cocaine Neg METHAMP Neg Methadone Neg Opiates Neg OXY Neg PCP Neg Propoxyphene Marijuana Positive Tricyclic Antidepressants Drug Screen Interpretation MDMA Neg N[facility]/DOORWAY- DRUG OF ABUSE SCREEN,URINE 2019-05 AMP neg JYOTHI neg BENZO neg Buprenorphine positive Cocaine neg METHAMP neg Methadone neg Opiates neg OXY neg PCP neg Propoxyphene Marijuana neg Tricyclic Antidepressants Drug Screen Interpretation MDMA neg FENTANYL CONFIRMATION 2019-06-05 Fentanyl Confirmation Negative Vkqwom=690 N[facility]/DOORWAY- DRUG OF ABUSE SCREEN,URINE 2019-04 AMP neg JYOTHI neg BENZO neg Buprenorphine pos Cocaine neg METHAMP neg Methadone neg Opiates neg OXY neg PCP neg Propoxyphene Marijuana neg Tricyclic Antidepressants Drug Screen Interpretation MDMA neg NCRC/DOORWAY- DRUG OF ABUSE SCREEN,URINE 2019-04 AMP neg JYOTHI neg BENZO neg Buprenorphine pos Cocaine neg METHAMP neg Methadone neg Opiates neg OXY neg PCP neg Propoxyphene Marijuana pos Tricyclic Antidepressants Drug Screen Interpretation MDMA neg FENTANYL CONFIRMATION 2019-05-15 Fentanyl Confirmation Negative Zqifka=289 FENTANYL CONFIRMATION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
[2022-03-23 12:03] LABS: Chlamydia Result Negative (Negative); GC Result Negative (Negative)
== END 2022-03-19 14:51 | disposition home or self-care (01) ==
LOC: LBN 14:50
PROVIDERS: PCP Nurse Practitioner Family; Visit Provider Nurse Practitioner Family
DX: N89.8 Other specified noninflammatory disorders of vagina (principal); Z11.3 Encounter for screening for infections with a predominantly sexual mode of transmission
CPT/HCPCS: 87491; 87591; 87480; 87510; 87660

== ENCOUNTER 2022-05-25 21:30 | Outpatient (REF) | payer BC, SELFPAY ==
[2022-05-27 16:59] LABS: Chlamydia Result Negative (Negative); GC Result Negative (Negative)
== END 2022-05-25 21:31 | disposition home or self-care (01) ==
LOC: LBN 21:30
PROVIDERS: PCP Nurse Practitioner Family; Visit Provider Nurse Practitioner Family
DX: N89.8 Other specified noninflammatory disorders of vagina (principal); Z11.3 Encounter for screening for infections with a predominantly sexual mode of transmission
CPT/HCPCS: 87491; 87591; 87480; 87510; 87660

== ENCOUNTER 2022-08-24 15:19 | Outpatient (REF) | payer BC, SELFPAY ==
--- NOTE | 2022-08-24 10:20 | PAPFT_PTH ---
PATIENT: César Caceres LOC: PATO U#:[id number] AGE/SX: 27/F ROOM: RE08/24/[address]: Daniel Quiros DNP : 1995 BED: DIS: 08/24/2022 SPEC #: [id number] RECD: 08/25/22 12:49 STATUS: TIFF REWhitney #: [id number] NALLELY: 08/24/22 10:[address]: Daniel Srivastava DEPT: [facility] Cytology RECD BY: Tala Welsh Tissues: 1 - CX/ENDOCX FOR PAP SMEARS Procedures: PAP THIN PREP/UVM Screening Comments: [id number]
[2022-09-02 13:35] LABS: Chlamydia Result Negative (Negative); GC Result Negative (Negative)
== END 2022-08-24 15:20 | disposition home or self-care (01) ==
LOC: LBN 15:19
PROVIDERS: PCP Nurse Practitioner Family; Visit Provider Nurse Practitioner Family
DX: N89.8 Other specified noninflammatory disorders of vagina (principal); Z11.3 Encounter for screening for infections with a predominantly sexual mode of transmission; Z12.4 Encounter for screening for malignant neoplasm of cervix; R87.610 Atypical squamous cells of undetermined significance on cytologic smear of cervix (ASC-US)
CPT/HCPCS: 87491; 87591; 88142; 87480; 87510; 87660

== ENCOUNTER 2022-12-13 00:12 | Observation (INO) | payer MEDICAID, SELFPAY ==
[2022-12-13] VITALS (39 sets, daily range): BP systolic 82–135; BP diastolic 49–81; PULSE 79–126; RESP 12–24; TEMP 36.1–36.9; O2SAT 93–98
--- NOTE | 2022-12-13 00:15 | RT.EKG_ITS ---
APPROVED REPORT Exam: Resting ECG Reason for Exam: seizure Patient Location: E HR:116 bpm ECG Measurements Heart Rate 116 AXIS MA 103 P 9 QRSd 70 QRS 66 QT 322 T -3 QTc 448 Conclusion Sinus tachycardia...rate> 99
[2022-12-13] MEDS: LORazepam 2 MG/ML VIAL IVP (00:27)
[2022-12-13 00:51] LABS: Abs Immature Grans 0.04 10^3/uL (0.0-0.06); Absolute Basophil Count 0.03 10^3/uL (0.0-0.2); Basophils % 0.3; HCT 37.3 % (36.0-46.0); HGB 13.3 g/dL (11.2-15.7); Immature Grans % 0.3; Lymphocytes % 17.2; MCH 30.9 pg (27.0-33.0); MCHC 35.7 % (32.0-36.0); MCV 87 fL (80-95); MPV 10.9 fL (8.0-11.0); Monocytes % 5.9; Neutrophils % 76.3; Platelet Count 312 10^3/uL (130-400); RDW 11.9 % (11.7-14.6); RDW-SD 37.7 fL; WBC 11.61 10^3/uL (4.4-10.8)
[2022-12-13] MEDS: Normal Saline 1,000 ML 125 ML IV ×4 (00:51→18:15)
[2022-12-13 01:00] LABS: Absolute Monocyte Count 0.68 10^3/uL (0.1-0.8); Absolute Neutrophil Count 8.86 10^3/uL (1.2-6.7)
[2022-12-13 01:06] LABS: ETHANOL BLOOD 4.5 mg/dL (<10)
[2022-12-13 01:08] LABS: Salicylate < 2.8 mg/dL (<2.8)
[2022-12-13 01:09] LABS: ALT 22 U/L (14-59); AST 19 U/L (15-37); Acetaminophen < 2 ug/mL (10-30); Albumin 3.3 g/dL (3.4-5.0); Alkaline Phosphatase 87 U/L (46-116); Anion Gap 14.2 mmol/L (3-11); BUN 16 mg/dL (7-18); Bilirubin, Total 0.2 mg/dL (0.2-1.0); CO2 21.8 mmol/L (21.0-32.0); CREATININE 1.1 mg/dL (0.55-1.02); Calcium 8.9 mg/dL (8.5-10.1); Chloride 99 mmol/L (98-107); Estimated GFR 71.51 (mL/min/1.73m2); Glucose 164 mg/dL (74-106); Magnesium 2.1 mg/dL (1.8-2.4); Potassium 3.4 mmol/L (3.5-5.1); Sodium 135 mmol/L (136-145); Total Protein 7.4 g/dL (6.4-8.2)
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
[2022-12-13 01:58] LABS: BE (Venous) 1 mmol/L (-2-3); HCO3 (Venous) 26 mmol/L (23-28); O2 Sat (Venous) 99 %; TCO2 (Venous) 24 mmol/L (24-29); pCO2 (Venous) 42 mmHg (41-51); pO2 (Venous) 110 mmHg
[2022-12-13 02:10] LABS: Bilirubin Negative (Negative); Blood Trace-intact (Negative); Clarity Sl Cloudy (Clear); Glucose Negative (Negative); Ketones Negative (Negative); Leukocyte Esterase Negative (Negative); Nitrite Negative (Negative); Specific Gravity 1.025 (1.005-1.025); Urobilinogen 0.2 mg/dL (Up to 0.2)
[2022-12-13 02:21] LABS: Bacteria Rare HPF (Negative); Crystals Few Amorphous HPF (Negative); Epithelial Cells Rare HPF (Negative); RBC 0-2 HPF (0-2); WBC 0-2 HPF (0-5)
[2022-12-13 02:22] LABS: C & S Indicated? No; Mucus Negative (Negative)
[2022-12-13 02:23] LABS: *AMPHETAMINES SCREEN URINE Negative (Negative); *BARBITURATES SCREEN URINE Negative (Negative); *BENZODIAZEPINES SCREEN URINE Negative (Negative); Cannabinoids THC Negative (Negative); Cocaine Screen,Urine Negative (Negative); METHADONE URINE SCREEN Negative (Negative); OPIATES URINE SCREEN Negative (Negative); Tricyclic Antidepressants Negative (Negative)
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
[2022-12-13] MEDS: Acetaminophen 500 MG TAB 1000 MG PO ×2 (05:40→19:58)
[2022-12-13] MEDS: ACETAMINOPHEN 1,000 MG/100 ML BTL 400 MG IVPB (06:34)
[2022-12-13] MEDS: Ondansetron 4 MG/2 ML VIAL IVP (06:35)
--- NOTE | 2022-12-13 07:16 | NUR.NOTE ---
Accessed pt chart to determine EKG orders. Dupliate order cancelled. Nursing Note:
[2022-12-13 07:41] LABS: HCT 34.3 % (36.0-46.0); HGB 12.4 g/dL (11.2-15.7); MCH 31.2 pg (27.0-33.0); MCHC 36.2 % (32.0-36.0); MCV 86 fL (80-95); MPV 11.6 fL (8.0-11.0); Platelet Count 221 10^3/uL (130-400); RBC 3.97 10^6/uL (3.93-5.22); RDW 11.9 % (11.7-14.6); RDW-SD 37.2 fL; WBC 10.03 10^3/uL (4.4-10.8)
[2022-12-13 08:12] LABS: ALT 21 U/L (14-59); AST 21 U/L (15-37); Albumin 2.9 g/dL (3.4-5.0); Alkaline Phosphatase 78 U/L (46-116); Anion Gap 10.5 mmol/L (3-11); BUN 14 mg/dL (7-18); Bilirubin, Total 0.4 mg/dL (0.2-1.0); CO2 23.5 mmol/L (21.0-32.0); CREATININE 0.9 mg/dL (0.55-1.02); Calcium 8.5 mg/dL (8.5-10.1); Chloride 100 mmol/L (98-107); Estimated GFR 90.98 (mL/min/1.73m2); Glucose 138 mg/dL (74-106); Magnesium 1.8 mg/dL (1.8-2.4); Potassium 3.1 mmol/L (3.5-5.1); Sodium 134 mmol/L (136-145); TSH (W/Ref FT4) 0.28 uIU/mL (0.36-3.74); Total Protein 6.7 g/dL (6.4-8.2)
[2022-12-13 08:30] LABS: FREE T4 1.64 ng/dL (0.76-1.46)
[2022-12-13] MEDS: Buprenorphine/Naloxone 8 mg/2 mg FILM 3 EACH SL (08:50)
[2022-12-13] MEDS: Ketorolac 15 MG/ML VIAL IVP (10:30)
[2022-12-13] MEDS: Potassium Chloride 20 MEQ TABCR 40 MEQ PO (10:31)
[2022-12-13] MEDS: POTASSIUM CHLORIDE 20 MEQ/100 ML BAG 50 MEQ IVPB ×2 (10:32→12:27)
[2022-12-13] MEDS: Normal Saline 500 ML 999 ML IV (10:33)
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
[2022-12-13 16:47] LABS: BUN 8 mg/dL (7-18); CREATININE 0.7 mg/dL (0.55-1.02); Calcium 8.5 mg/dL (8.5-10.1); Chloride 105 mmol/L (98-107); Estimated GFR 123.01 (mL/min/1.73m2); Glucose 110 mg/dL (74-106); Potassium 3.9 mmol/L (3.5-5.1); Sodium 136 mmol/L (136-145)
[2022-12-13] MEDS: LORazepam 1 MG TAB PO (18:14)
[2022-12-14] MEDS: Normal Saline 1,000 ML 125 ML IV (02:08)
[2022-12-14 04:00] VITALS: BP 111/72; PULSE 79; RESP 16; TEMP 36.9; O2SAT 98
[2022-12-14 07:15] VITALS: BP 102/63; PULSE 55; TEMP 36.6; O2SAT 96
[2022-12-14 07:27] LABS: Abs Immature Grans 0.01 10^3/uL (0.0-0.06); Absolute Basophil Count 0.02 10^3/uL (0.0-0.2); Absolute Eosinophil Count 0.01 10^3/uL (0.0-0.7); Absolute Neutrophil Count 2.59 10^3/uL (1.2-6.7); Basophils % 0.3; Eosinophils % 0.2; HCT 31.2 % (36.0-46.0); HGB 10.7 g/dL (11.2-15.7); Immature Grans % 0.2; Lymphocytes % 48.1; MCH 30.7 pg (27.0-33.0); MCHC 34.3 % (32.0-36.0); MCV 89 fL (80-95); MPV 11.3 fL (8.0-11.0); Monocytes % 8.3; Neutrophils % 42.9; Platelet Count 192 10^3/uL (130-400); RBC 3.49 10^6/uL (3.93-5.22); RDW 12.2 % (11.7-14.6); RDW-SD 39.4 fL; WBC 6.03 10^3/uL (4.4-10.8)
[2022-12-14 07:38] LABS: Anion Gap 5.8 mmol/L (3-11); BUN 9 mg/dL (7-18); CO2 24.2 mmol/L (21.0-32.0); CREATININE 0.7 mg/dL (0.55-1.02); Chloride 109 mmol/L (98-107); Estimated GFR 123.01 (mL/min/1.73m2); Glucose 101 mg/dL (74-106); Magnesium 1.7 mg/dL (1.8-2.4); Potassium 3.4 mmol/L (3.5-5.1); Sodium 139 mmol/L (136-145)
[2022-12-14] MEDS: Buprenorphine/Naloxone 8 mg/2 mg FILM 3 EACH SL (09:13)
[2022-12-14 12:48] VITALS: BP 116/71; PULSE 87; RESP 16; TEMP 36.7; O2SAT 97
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
--- NOTE | 2022-12-14 14:44 | PDOC.CMDIS ---
Date of service: 12/14/22 Time of Service: 14:44 LACE Index Scoring Tool Questions: Length of Stay (in days): 1 Was the patient admitted via the E.D.?: Yes E.D. Visits: 1 Answers: Total Score: 5 Risk of Readmission: Low Risk Care Management Discharge Plan Reason for Hospitalization: Intentional overdose of gabapentin Discharge Plan: César is discharged home via private vehicle with friend. She will follow up with her PCP and discharge plan of care as instructed. No new services are ordered prior to discharge. Patient/Family Education Needs: Review discharge instructions, limitations, medications and plan to follow up with community providers. Discuss ask me three and goals of self care.
== END 2022-12-14 13:47 | disposition home or self-care (01) ==
LOC: ER 03:26 → MS 03:46
PROVIDERS: Nurse Practitioner Family; Admitting Provider Family Medicine; Emergency Provider Emergency Medicine; PCP Nurse Practitioner Family; Visit Provider Family Medicine
DX: T42.6X2A Poisoning by other antiepileptic and sedative-hypnotic drugs, intentional self-harm, initial encounter (principal); F19.10 Other psychoactive substance abuse, uncomplicated; F31.81 Bipolar II disorder; R56.9 Unspecified convulsions; F17.210 Nicotine dependence, cigarettes, uncomplicated; F41.9 Anxiety disorder, unspecified; F14.10 Cocaine abuse, uncomplicated; F11.21 Opioid dependence, in remission; E78.1 Pure hyperglyceridemia
CPT/HCPCS: 36415; 80048; 80053; 80307; 82805; 85027; 93005; 96374; 99285; 80320; 80329; 81003; 81015; 83735; 84439; 84443; 85025; 93010; 99222; 99239; G0378; J0131; J1885; J2060; J2405; J3480

== ENCOUNTER 2023-08-31 12:25 | Outpatient (REF) | payer MEDICAID, SELFPAY ==
--- NOTE | 2023-08-31 09:40 | PAPFT_PTH ---
PATIENT: César Caceres LOC: [facility] U#:[id number] AGE/SX: 28/F ROOM: RE08/31/[address]: Daniel Quiros DNP : 1995 BED: DIS: 08/31/2023 SPEC #: [id number] RECD: 08/31/23 13:21 STATUS: TIFF REWhitney #: [id number] NALLELY: 08/31/23 09:[address]: Daniel Srivastava DEPT: [facility] Cytology RECD BY: Tala Welsh Tissues: 1 - CX/ENDOCX FOR PAP SMEARS Procedures: PAP THIN PREP/UVM Screening Comments: [id number]
== END 2023-08-31 12:26 | disposition home or self-care (01) ==
LOC: LBN 12:25
PROVIDERS: PCP Nurse Practitioner Family; Visit Provider Nurse Practitioner Family
DX: Z12.4 Encounter for screening for malignant neoplasm of cervix (principal)
CPT/HCPCS: 88142

== ENCOUNTER 2024-07-06 22:06 | Outpatient (REF) | payer MEDICAID, SELFPAY ==
[2024-07-06 21:24] LABS: HCT 39.6 % (36.0-46.0); HGB 13.9 g/dL (11.2-15.7); MCH 30.9 pg (27.0-33.0); MCHC 35.1 % (32.0-36.0); MCV 88 fL (80-95); MPV 11.8 fL (8.0-11.0); Platelet Count 226 10^3/uL (130-400); RDW-SD 38.7 fL; WBC 6.55 10^3/uL (4.4-10.8)
[2024-07-06 21:36] LABS: Iron 101 ug/dL (50-170)
[2024-07-06 22:05] LABS: ALT 60 U/L (14-59); AST 37 U/L (15-37); Albumin 3.3 g/dL (3.4-5.0); Alkaline Phosphatase 86 U/L (46-116); Anion Gap 9.7 mmol/L (3-11); BUN 16 mg/dL (7-18); Bilirubin, Total 0.4 mg/dL (0.2-1.0); CO2 27.3 mmol/L (21.0-32.0); CREATININE 0.7 mg/dL (0.55-1.02); Calculated LDL 148 mg/dL (<100); Chloride 104 mmol/L (98-107); Cholesterol 249 mg/dL (<200); Estimated GFR 122.25 (mL/min/1.73m2); Folate 17.1 ng/mL (8.6-20.0); Glucose 95 mg/dL (74-106); HDL Cholesterol 87 mg/dL (>or=50); Potassium 3.8 mmol/L (3.5-5.1); Sodium 141 mmol/L (136-145); TSH (W/Ref FT4) 1.51 uIU/mL (0.36-3.74); Total Protein 7.1 g/dL (6.4-8.2); Triglyceride 71 mg/dL (<150); Vitamin B12 815 pg/mL (193-986); Vitamin D 25 Total 25 ng/mL (30-100)
== END 2024-07-06 22:07 | disposition home or self-care (01) ==
LOC: LBN 22:06
PROVIDERS: PCP Nurse Practitioner Family; Visit Provider Nurse Practitioner Family
DX: R53.83 Other fatigue (principal); E78.1 Pure hyperglyceridemia
CPT/HCPCS: 80053; 80061; 82306; 85027; 82607; 82746; 83540; 84443

== ENCOUNTER 2024-07-26 03:52 | Outpatient (CLI) | payer MEDICAID, SELFPAY ==
[2024-07-30 17:39] LABS: Apolipoprotein B, Serum 87 mg/dL (48-124); Beta VLDL Cholesterol Not Detected mg/dL (<15); Beta VLDL Triglycerides Not Detected mg/dL (<15); Cholesterol, Total, CDC 205 mg/dL; Chylomicron Cholesterol Not Detected; Chylomicron Triglycerides Not Detected; HDL Cholesterol, CDC 57 mg/dL (>=50); LDL Cholesterol 129 mg/dL; LDL Triglycerides 31 mg/dL (<=50); Lp(a) Cholesterol <5 mg/dL (<5); LpX Not detected; Triglycerides, CDC 71 mg/dL; VLDL Cholesterol 19 mg/dL (<30); VLDL Triglycerides 19 mg/dL (<120)
== END 2024-07-26 03:53 | disposition home or self-care (01) ==
LOC: LBO 03:52
PROVIDERS: PCP Nurse Practitioner Family; Visit Provider Nurse Practitioner Family
DX: E78.5 Hyperlipidemia, unspecified (principal)
CPT/HCPCS: 36415; 80061; 82172; 82664

== ENCOUNTER 2024-12-04 10:34 | Outpatient (CLI) | payer MEDICAID, SELFPAY ==
[2024-12-04 12:21] LABS: Anion Gap 9.2 mmol/L (3-11); BUN 14 mg/dL (7-18); CO2 26.8 mmol/L (21.0-32.0); Calcium 8.5 mg/dL (8.5-10.1); Chloride 102 mmol/L (98-107); Estimated GFR 89.86 (mL/min/1.73m2); Glucose 117 mg/dL (74-106); Potassium 3.9 mmol/L (3.5-5.1); Sodium 138 mmol/L (136-145)
== END 2024-12-04 10:35 | disposition home or self-care (01) ==
LOC: LBO 10:34
PROVIDERS: PCP Nurse Practitioner Family; Visit Provider Nurse Practitioner Family
DX: Z51.81 Encounter for therapeutic drug level monitoring (principal)
CPT/HCPCS: 36415; 80048